=== PATIENT | male | born 1935 | race Hispanic/Latino ===

== ENCOUNTER 2019-09-18 13:25 | Outpatient (CLI) | payer OTHER, SELFPAY ==
--- NOTE | 2019-09-18 13:48 | ECHO_ITS ---
Patient Info Name: Aron Rose Age: 84 years : 1935 Gender: Male Ht: 70 in Wt: 210 lbs BSA: 2.19 m2 HR: 89 bpm BP: 148 / 71 mmHg Heart Rhythm: Atrial Fibrillation Technical Quality: Fair Exam Date: 09/18/2019 1:57 PM Exam Location: [facility] Patient Status: Outpatient Admit Date: 09/18/2019 Staff Ordering Physician: Agus Celaya DO Software Quality Assurance Engineer: Hortencia Giron RDCS Attending Provider: Agus Celaya DO Referring Physician: Yomi ANN; Exam Type: CA echo doppler color flow Study Info Indications I48.91 - UNSPECIFIED ATRIAL FIBRILLATION Complete two-dimensional, color flow and Doppler transthoracic echocardiogram is performed. Summary 1. Left ventricular chamber dimension is normal. 2. Left ventricular systolic function is normal, estimated at 60-65%. 3. The left ventricular diastolic function is abnormal. 4. E/e' 12 is mildly elevated. 5. Patient is in atrial fibrillation. 6. Left atrial chamber dimension is mildly enlarged. 7. The aortic valve is not well visualized. 8. There is moderate aortic valve sclerosis. 9. There is trace aortic valve regurgitation. 10. The mitral valve has moderately calcified annulus. 11. There is mild to moderate mitral valve regurgitation. 12. There is mild tricuspid valve regurgitation. 13. Mild pulmonary hypertension, estimated pulmonary arterial systolic pressure is 41 mmHg. Left Ventricle E/e' 12 is mildly elevated. Patient is in atrial fibrillation. Left ventricular chamber dimension is normal. Left ventricular systolic function is normal, estimated at 60-65%. The left ventricular diastolic function is abnormal. Right Ventricle Right ventricular chamber dimension is normal. Right ventricular systolic function is normal. Left Atria Left atrial chamber dimension is mildly enlarged. Right Atria Right atrial chamber dimension is normal. Aortic Valve Cannot determine number of aortic valve leaflets. The aortic valve is not well visualized. There is moderate aortic valve sclerosis. There is no aortic valve stenosis. There is trace aortic valve regurgitation. Pulmonic Valve There is no pulmonic regurgitation. Mitral Valve The mitral valve has moderately calcified annulus. There is no mitral valve stenosis. There is mild to moderate mitral valve regurgitation. Tricuspid Valve There is mild tricuspid valve regurgitation. Mild pulmonary hypertension, estimated pulmonary arterial systolic pressure is 41 mmHg. Pericardium/Pleural There is no pericardial effusion. Inferior Vena Cava Normal inferior vena cava with >50% collapse upon inspiration consistent with normal right atrial pressure, 5 mmHg. Aorta The aortic root size at the sinus of Valsalva is normal. Left Ventricular Outflow Tract Name Value Normal LVOT 2D LVOT Diameter 2.1 cm LVOT Doppler LVOT Peak Velocity 111 cm/s LVOT Peak Gradient 2 mmHg LVOT Mean Gradient 1 mmHg LVOT VTI 22 cm LVOT VTI/AV VTI Ratio 0.
== END 2019-09-18 13:26 | disposition home or self-care (01) ==
PROVIDERS: PCP Family Medicine; Visit Provider Internal Medicine Cardiovascular Disease
DX: I48.91 Unspecified atrial fibrillation (principal); I51.7 Cardiomegaly; I08.3 Combined rheumatic disorders of mitral, aortic and tricuspid valves; I27.20 Pulmonary hypertension, unspecified
CPT/HCPCS: 93306

== ENCOUNTER 2021-12-05 13:56 | Inpatient (IN) | payer MEDICARE, OTHER, SELFPAY ==
[2021-12-05] VITALS (33 sets, daily range): BP systolic 132–180; BP diastolic 76–102; PULSE 108–150; RESP 18–39; TEMP 35.9–36.9; O2SAT 93–100
--- NOTE | ~2021-12-05 | US_ITS ---
EXAMINATION: US arterial ankle brachial ind DATE: 12/07/2021 13:01 INDICATION: Bilateral diabetic foot ulcers. Weak pulses. TECHNIQUE: Segmental pressures and plethysmographic and Doppler waveforms of the brachial and lower e xtremity arteries were obtained. COMPARISON: None. FINDINGS: Right and left brachial artery pressures of 141 mm Hg and 143 mm Hg, respectively, are concordant (no rmal difference <= 30 mmHg). The right ankle-brachial index (BERNARDA) is 0.78 (normal >= 0.9-1.0). The right great toe-brachial index (TBI) is 0.64 (normal >= 0.65). The right ankle brachial index is based solely upon the pressure in t he right dorsalis pedis artery with no dopplerable pulse identified in the right posterior tibial art kush. Poor [id number] of the waveform at the right dorsalis pedis artery precluding assessment fo r phasicity and length of systolic upstrokes. The left BERNARDA is 1.76 based only upon the pressure in the left posterior tibial artery with no doppler able pulse at the left dorsalis pedis artery. The left TBI is 0.99. Arterial Doppler waveforms are bi phasic with brisk systolic upstrokes at the left posterior tibial artery. IMPRESSION: 1. 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 2. Arterial occlusive disease in the left lower limb with no dopplerable pulse at the left dorsalis p concetta artery but normal left BERNARDA and TBI. Reviewed, dictated and finalized at location A. IMPRESSION: 1. 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 2. Arterial occlusive disease in the left lower limb with no dopplerable pulse at the left dorsalis pedis artery but normal left BERNARDA and TBI.
--- NOTE | ~2021-12-05 | XR_ITS ---
EXAMINATION: XR chest 2V Exam Date/Time: 12/05/2021 14:10 CDT CLINICAL HISTORY: TRANSIENT ALTERATION OF AWARENESS,HICCUPS X3DAYS,FALL TODAY Comparison: 06/26/2016. RESULT: Lines, tubes, and devices: None. Lungs and pleura: Subsegmental basilar subsegmental opacities, more pronounced on the left, with lef t costophrenic angle blunting. Cardiomediastinal silhouette: Stable cardiomediastinal silhouette. Other: No acute osseous or upper abdominal finding. IMPRESSION: Bibasilar atelectasis/consolidation, worse on the left. Likely small left pleural effusion. Reviewed, dictated and finalized at location K. IMPRESSION: Bibasilar atelectasis/consolidation, worse on the left. Likely small left pleur al effusion.
--- NOTE | ~2021-12-05 | XR_ITS ---
EXAMINATION: XR fl Dobhoff insert/rad w img DATE: 12/09/2021 14:24 INDICATION: Failed modified swallow study requiring enteric feeding tube placement TECHNIQUE: A Dobbhoff type feeding tube was advanced into the duodenum utilizing intermittent fluoroscopy. 10 mL Omnipaque 350 contrast was injected through the tube into the stomach during the procedure to deline ate the location of the gastric outlet. Final image demonstrates the feeding tube in position with th e weighted tip at the expected location of the ligament of Treitz. The tube was flushed with [address] erile saline and fixed to the nares with adhesive tape.. Fluoroscopic images were recorded. The amoun t of fluoroscopy time used during this procedure was 3.8 minutes. There were no immediate complicatio ns. FINDINGS/IMPRESSION: Successful fluoroscopy-guided Dobbhoff feeding tube placement with distal tip in the fourth portion o f the duodenum. Reviewed, dictated and finalized at location A.
--- NOTE | ~2021-12-05 | CT_ITS ---
EXAMINATION: CT abdomen pelvis wo con DATE: 12/05/2021 16:49 INDICATION: Hematuria. TECHNIQUE: Computed tomography (CT) of the abdomen and pelvis was performed without intravenous contr ast. Automated exposure control and iterative reconstruction technique were employed. The dose-length product was 1601.79 mGy-cm. COMPARISON: 12/02/2014. FINDINGS: Lower thorax: Mild motion artifact. Senescent changes. Bibasilar atelectasis. Right lower lobe calcif ied granuloma. Atherosclerotic calcifications in the aorta. Mitral and aortic valve calcifications. H eavy coronary artery calcifications. Liver: Right lobe cyst is mostly obscured in this exam. Biliary/Gallbladder: Gallbladder is normal. No bile duct dilation. Pancreas: No mass or duct dilation. Spleen: Normal. Adrenals:No mass. Kidneys: Bilateral perinephric stranding. Cortical thinning and scarring greater on the right. Multip le bilateral simple cysts. MR documented right inferior pole hemorrhagic cyst. No hydronephrosis or n ephrolithiasis. GI tract: No small or large bowel dilation. Normal appendix. Mesentery/Peritoneum: No ascites, mass, or free air. Retroperitoneum: No mass. Abdominal arterial atherosclerosis. Pelvis: Partially visualized uncomplicated appearing right hip arthroplasty which creates artifact th at obscures some pelvic organs detail. Mild bladder wall thickening likely on the basis of outlet obs truction. Small anterior ureterocele. Prostatomegaly. Soft Tissues: Moderate bilateral fat-containing inguinal hernias. Small fat-containing umbilical lalo ia. Bones: No acute osseous finding. IMPRESSION: No acute abdominopelvic process. Chronic and incidental findings detailed above. Reviewed, dictated and finalized at location K. IMPRESSION: No acute abdominopelvic process. Chronic and incidental findings detailed above .
--- NOTE | ~2021-12-05 | XR_ITS ---
MODIFIED ESOPHAGRAM HISTORY: Choking episode TECHNIQUE: Modified barium esophagram was performed on 12/08/2021. I administered fluoroscopy and perf ormed the exam with speech pathologist. Patient was seated for lateral fluoroscopic imaging for lea stion of thin liquids, pudding, solids and quantified amounts, followed by thin liquids in uncontroll ed amounts. This was recorded on tape. A single fluoroscopic spot image was also recorded. The DAP fo r this procedure was 2.12 Gycm2. The amount of fluoroscopy time used during this procedure was 1.4 mi nutes. FINDINGS: Oral stage: Adequate function. Pharyngeal stage: There is reduced laryngeal elevation, laryngeal reduction, tongue base retraction a nd pharyngeal squeeze. There is vallecular residue with laryngeal penetration and aspiration. Cervical/esophageal stage: Adequate function. IMPRESSION: Pharyngeal dysphagia with laryngeal penetration and aspiration with thin liquids and pudd ing consistencies. Please correlate with speech pathologist findings and specific feeding recommenda tions. Reviewed, dictated and finalized at location A. IMPRESSION: Pharyngeal dysphagia with laryngeal penetration and aspiration with thin liquids and pudding consistencies. Please correlate with speech patholog ist findings and specific feeding recommendations.
--- NOTE | ~2021-12-05 | XR_ITS ---
EXAM: XR foot RT 2V HISTORY: Diabetic wound COMPARISON: None available FINDINGS: Decreased mineralization. Degenerative change at the tibiotalar joint and midfoot joints a nd first MTP. No fracture or dislocation. Achilles and plantar enthesopathy. High arch. No definite s oft tissue defect, erosion, or periosteal change. Vascular calcifications. IMPRESSION: No radiographic evidence of osteomyelitis in the right foot. Reviewed, dictated and finalized at location K.
--- NOTE | ~2021-12-05 | CT_ITS ---
EXAMINATION: CT brain wo con DATE: 12/05/2021 14:27 INDICATION: Altered mental status. Transient alteration of awareness. TECHNIQUE: Computed tomography (CT) of the head was performed without intravenous contrast. The mA wa s adjusted according to patient size. Iterative reconstruction technique was employed. Exam dose: 90 8.00 mGy-cm total exam DLP. COMPARISON: None FINDINGS: Examination is limited due to motion artifact. Technologist notes that this was the best ex amination could be obtained. Bilateral vertebral artery, basilar artery and prominent bilateral carotids and supraclinoid internal carotid artery calcifications. There is nonspecific diminished attenuation cerebral white matter, likely due to chronic small vessel ischemic changes. Chronic left basal ganglia and periventricular lacunar infarcts. There is an old infarct in the media l right occipital area. No intracranial mass lesion or hemorrhage, midline shift or mass effect. No subdural or epidural hematoma. The orbital contents are unremarkable. No fracture or bone destruction of the cranial vault. The mastoid air cells and paranasal sinuses are normally developed and aerated. IMPRESSION: Old right occipital and left basal ganglia and periventricular infarcts Cerebral atherosclerosis and chronic small vessel ischemic changes of cerebral white matter Reviewed, dictated and finalized at Location A. Reviewed, dictated and finalized at location A. IMPRESSION: Old right occipital and left basal ganglia and periventricular inf arcts Cerebral atherosclerosis and chronic small vessel ischemic changes of cerebral white matter
--- NOTE | ~2021-12-05 | XR_ITS ---
EXAM: XR foot LT 2V HISTORY: Diabetic foot wound COMPARISON: None available FINDINGS: Mild hallux valgus. Mild degenerative change at the first MTP. Degenerative change also pr esent at the tibiotalar joint and in the midfoot. Diffuse osteopenia. Achilles and plantar enthesopat hy. Possible soft tissue defects in the soft tissues of the ball of the foot, overlying the metatarsa l heads. IMPRESSION: Possible soft tissue defects/ulcers at the ball of foot, correlate clinically. No radiographic eviden ce of osteomyelitis. Reviewed, dictated and finalized at location K. IMPRESSION: Possible soft tissue defects/ulcers at the ball of foot, correlate clinically. No radiographic evidence of osteomyelitis.
--- NOTE | 2021-12-05 13:58 | ED.AMS ---
HPI - Altered Mental Status General Chief Complaint: Altered Mental Status Stated Complaint: Altered mental, increased heart rate Time Seen by Provider: 12/05/21 13:56 History of Present Illness HPI narrative: pt found altered mental status, urinated on himself no sz activity per family, pt says feels weak, hiccups for 3 days no other cp/sob/layton/neck or back pain/abd pain/f/uri/isolated neuro cahgnes, med changes but h/o uti's and incontinent of urine today Related Data Allergies Allergy/AdvReac Type Severity Reaction Status Date / Time Itjccje-[id number]-RwH Reductase Allergy Unknown unknown Verified 12/05/21 14:06 Inhibitor [Knntsag-Hjm-Oqf Reductase Inhibitor] Review of Systems Review of Systems: CONSTITUTIONAL: Denies fever, chills, or sweats. EYES: Denies visual changes, redness, or discharge. ENT: Denies rhinorrhea, congestion, sore throat, or otalgia. CARDIOVASCULAR: Denies chest pain, palpitations, or edema. RESPIRATORY: Denies cough or dyspnea. GASTROINTESTINAL: Denies abdominal pain, nausea, vomiting, or diarrhea. GENITOURINARY: Denies dysuria or hematuria. SKIN: Denies rash or itching. MUSCULOSKELETAL: Denies back pain, joint pain, or myalgia. NEUROLOGIC: Denies headache, numbness, has weakness PSYCHIATRIC: Denies anxiety or depression. PMFSH Past Medical History Medical History Abnormality of gait BPH associated with nocturia Cognitive impairment Diabetes mellitus with neuropathy History of CVA (cerebrovascular accident) Memory deficit due to and not concurrent with cerebrovascular accident (CVA) Type 2 diabetes mellitus with hyperglycemia Family History Family History Father Diabetes mellitus Mother Cerebrovascular accident Social History Social History (Updated 04/23/21 @ 13:04 by Julia Castellano) Social History: Smoking status: Never smoker Second hand tobacco smoke exposure: No Alcohol intake: never Substance use: never Substance use type: does not use Gender identity (if verbalized by the patient): Male Sexual Orientation (if Verbalized by the Patient): Straight or Heterosexual Exam Narrative: APPEARANCE: Well appearing, no pain in distress, well-nourished. Head normocephalic atraumtaic. EYES: PERRLA/EOMI, conjunctivae very clear. NOSE: Normal no drainage EARS:TMS clear Tawanda Bailey, with good light reflex. THROAT: Pharynx clear, no exudate. no bites to tongue NECK: Supple. No adenopathy, no masses. RESPIRATORY: Airway patent, repsirations nonlabored. Clear to auscultation bilaterally, no rales, rhonchi, wheezing. CARDIOVASCULAR: tachy rate and rhythm without murmurs rubs or gallops. ABDOMINAL: Soft, nontender, nondistended, no hepatosplenomegally has wet self foul urine smell MUSCULOSKELETAl: Moves all extremities. Strenght/ROM intact, No edema, No calf tenderness. NEURO: Alert. Cranial nerves II through XII intact. Good gait. Good coordination globally weak no focal deficits SKIN:: Warm, dry. Normal Color PSYCHIATRIC: Normal affect/mood, normal interaction with parents. Course Course Emergency Course: updated pt and family at 1525 hr down wiht diltiazem but then coming back up but will add fluid bolus and dilt drip and get admitted betsy helped hiccups calling hospitalist at 1549 Vital Signs Vital signs: Vital Signs Temperature 35.9 C L 12/05/21 13:54 Pulse Rate 150 H 12/05/21 13:54 Respiratory Rate 18 12/05/21 13:54 Blood Pressure 150/96 H 12/05/21 13:54 Pulse Oximetry 98 12/05/21 13:54 Temperature 35.9 C L 12/05/21 13:54 Pulse Rate 111 H 12/05/21 15:19 Respiratory Rate 29 H 12/05/21 15:19 Blood Pressure 154/88 H 12/05/21 15:19 Pulse Oximetry 95 12/05/21 14:47 MDM - Altered Mental Status Differential Diagnosis Differential diagnosis: Likely altered mental status, sepsis and other (sz, electrolytes stroke) Medical Recor
--- NOTE | 2021-12-05 14:02 | ECG_ITS ---
Measurements Intervals Burr Rate: 146 P: IL: 0 QRS: 95 QRSD: 90 T: 38 QT: 272 QTc: 425 Interpretive Statements ATRIAL FIBRILLATION WITH RAPID VENTRICULAR RESPONSE DELAYED PRECORDIAL R/S TRANSITION BASELINE ARTIFACT- I, II, III, AVR, AVL, AVF, V6 ABNORMAL ECG Electronically Signed On 12-05-2021 15:12:19 CDT by Agus Celaya D.O.
[2021-12-05 14:49] LABS: Basophils Absolute Auto 0.1 K/mm3 (0.0-0.1); Basophils Percent Auto 0.3 % (0.2-1.2); Hemoglobin 14.8 g/dL (14.0-18.0); Immature Granulocyte Absolute 0.22 K/mm3 (0.00-0.031); Lymphocytes Absolute Auto 0.73 K/mm3 (0.9-3.2); Lymphocytes Percent Auto 3.2 % (18.3-44.2); Mean Corpuscular HGB Conc 32.2 g/dl (32-36); Mean Corpuscular Volume 90.2 fl (80-100); Mean Platelet Volume 10.6 fl (7.4-10.4); Monocytes Absolute Auto 1.7 K/mm3 (0.1-0.6); Monocytes Percent Auto 7.2 % (2.6-8.5); Neutrophils Absolute Auto 20.4 K/mm3 (1.3-6.7); Neutrophils Percent Auto 88.3 % (45.5-73.1); Platelet Count Result 271 k/mm3 (150-375); Red Cell Distribution Width 13.2 % (11.5-14.5); White Blood Count 23.1 K/mm3 (4.5-10.0)
[2021-12-05] MEDS: SODIUM CHLORIDE 0.9% IV 1,000 ML 150 ML IV CONT (14:51)
[2021-12-05] MEDS: METOCLOPRAMIDE HCL INJ 10 MG/2 ML VIAL IV PUSH (14:51)
[2021-12-05] MEDS: dilTIAZem HCl INJ 25 MG/5 ML VIAL 20 MG IV PUSH (14:51)
[2021-12-05 14:59] LABS: Lactic Acid Reflex 2.3 mmol/L (0.7-2.0)
[2021-12-05 15:00] LABS: Magnesium 1.8 mg/dL (1.6-2.3)
[2021-12-05 15:04] LABS: Alanine Aminotransferase 17 U/L (6-50); Albumin Level 4.3 g/dL (3.5-5.1); Alkaline Phosphatase 132 U/L (38-126); Anion Gap 12 mmol/L (8-16); Aspartate Amino Transferase 22 U/L (17-59); Blood Urea Nitrogen 18 mg/dL (9-20); Carbon Dioxide 19 mmol/L (22-30); Chloride 97 mmol/L (98-107); Estimated Glomerular Filt Rate > 60; Glucose 336 mg/dL (65-110); Potassium 4.9 mmol/L (3.4-5.0); Sodium 128 mmol/L (137-145)
[2021-12-05 15:05] LABS: INR 1.2; Partial Thromboplastin Time 31.2 SECONDS (22.3-36.8); Prothrombin Time 15.1 Seconds (11.1-14.7)
[2021-12-05 15:10] LABS: Burr Cells 1+ (NORMAL); Platelet Estimate Adequate (Adequate)
[2021-12-05 15:41] LABS: CRP 32.4 mg/dL (<1.0)
[2021-12-05 16:08] LABS: Add Urine Microscopic? YES; Appearance Urine Slightly Cloudy (Clear); Bilirubin Urine 1+ (Negative); Blood Urine 2+ (Negative); Color Urine Yellow (Yellow); Glucose Urine UA 2+ mg/dL (Negative); Ketones Urine 4+ mg/dL (Negative); Leukocyte Esterase Ur Negative LEU/UL (Negative); Nitrate Urine Negative (Negative); Protein Urine 2+ mg/dL (Negative); Urobilinogen Urine 0.2 mg/dL (<2.0); pH Urine 5.5 (5.0-9.0)
[2021-12-05] MEDS: dilTIAZem 100 MG/100 ML 100 MG/100 ML BAG IV CONT (16:08)
[2021-12-05 16:14] LABS: Influenza A QL RT-PCR Negative (Negative); Influenza B QL RT-PCR Negative (Negative); SARS-CoV-2 RNA PCR Negative
[2021-12-05 16:18] LABS: Mucus Urine Rare /lpf; Squamous Epithelial Cell Urine Occasional /hpf (Few)
[2021-12-05 16:58] LABS: Alveolar/Arterial O2 Gradient 35.3 mmHg; Base Excess ABG -5.5 mEq/l (+/-2.0); Carboxyhemoglobin 0.7 % THb (0-2.0); Fractional Inspired Oxygen 21 %; HCO3 ABG 17.7 mEq/l (22.0-26.0); Methemoglobin ABG 0.4 %THb (0-1.5); Oxygen Content ABG 19.2 %vol (16.0-22.0); Oxygen Saturation ABG 96.1 % (95.0-100.0); Oxyhemoglobin 94.9 % THb (90.0-100.0); PCO2 ABG 28.6 mmHg (35.0-45.0); PO2 ABG 80.2 mmHg (80.0-100.0); PO2 FiO2 Ratio Arterial Blood 3.82 %; Total Hemoglobin 14.4 g/dL (12.0-18.0); pH ABG 7.409 (7.350-7.450)
[2021-12-05 16:59] LABS: Device ROOM AIR; Modified Allen's Test Pass; Site Drawn RIGHT BRACHIAL
[2021-12-05 17:45] LABS: Reflex Lactic Acid Yes or No Add Lactic
--- NOTE | 2021-12-05 18:30 | PM.IMHP ---
H&P: HPI History of Present Illness Date/Time: 12/05/21 18:30 Chief Complaint: Found on the floor, confused. Narrative: This is a pleasant 86-year-old male with history of stroke, cognitive impairment, insulin-dependent type 2 diabetes mellitus, paroxysmal atrial fibrillation on anticoagulation, hypertension, benign prostatic hyperplasia, and overactive bladder who presented to the emergency department via EMS from home for evaluation after his found him on the floor in a confused state. He reports not feeling well the past 3 days though he has difficulties giving me specifics aside from the fact that his appetite has been poor due to nausea and he has had hiccups. According to the patient, he has not really had anything to eat or drink for 3 days and he has become increasingly more weak. Not long prior to arrival he fell down onto his bottom while walking in the bedroom as he was feeling very weak. He denies head trauma, loss of consciousness, and injuries from the fall though he and his are unable to get him up and emergency services were contacted. He has been tachycardic (atrial fibrillation/rapid ventricular response), tachypneic, and mildly hypertensive since arrival. Initial workup was significant for a WBC of 23.1, CRP 32.4, lactic acid 2.3, glucose 336, sodium 128, carbon dioxide 19, and beta hydroxybutyrate 2.40. ABG with a pH of 7.409, pCO2 28.6, bicarb 17.7. UA was positive for 2+ protein, 2+ glucose, 4+ ketones, 4 to 6 WBC. Chest x-ray showed bibasilar atelectasis/consolidation and a CT of the abdomen and pelvis showed no acute processes. He was given 3 L of normal saline and was started on a Cardizem drip. He also received 1 g of ceftriaxone for possible urinary tract infection, and he was admitted to the IMU. It was felt that his ketones were more likely due to profound dehydration and not DKA with a normal pH and anion gap. At the time my evaluation he feels a bit better after receiving IV fluids. Hiccups initially improved after receiving metoclopramide but they are starting to return. He does not believe that he has had a fever however he does endorse chills. Aside from that he has no complaints and specifically denies headache, sinus congestion, sore throat, ear pain, cough, shortness of breath, chest pain, pleuritic pain, palpitations, vomiting, diarrhea, and dysuria. On physical exam he was noted to have some wounds on his feet at the site of known calluses. He was unaware that the callus on the plantar aspect of the left foot had a small opening and was draining. He has no pain there but is has limited feeling in his feet due to neuropathy. He denies sick contacts. No dysphagia or concerns for aspiration. Review of Systems Review of Systems: 12 systems were reviewed. Patient is unable to tell me how his glucose has been running at home and I am not certain he checks it that often. No blurry vision, polydipsia, or polyuria. Except as documented, all other systems were reviewed and are negative. [facility] Past Medical History Medical History (Updated 12/05/21 @ 22:28 by Aspen Dempsey PA-C) BPH associated with nocturia Cerebrovascular accident Resultant memory and cognitive deficits. Cognitive impairment Diabetic peripheral neuropathy Dyslipidemia Hypertension Insulin dependent type 2 diabetes mellitus Kidney stones Overactive bladder Paroxysmal atrial fibrillation Surgical History Surgical History (Updated 12/05/21 @ 22:17 by Aspen Dempsey PA-C) History of arthroscopic knee surgery History of foot surgery History of total right hip arthroplasty Family History Family History Father Diabetes mellitus Mother Cerebrovascular accident Social History Social History (Updated 12/05/21 @ 22:18 by Aspen Dempsey PA-C) Social History: Surrogate decision maker: Lyssa Rose (spouse) or Dangelo Menchaca (daughter). Code status: Full code. Smok
[2021-12-05 18:35] LABS: Lactic Acid 1.6 mmol/L (0.7-2.0)
--- NOTE | 2021-12-05 19:15 | ADMGEN ---
This patient, Aron Rose, was admitted to IMU Room 212-01 at 1840 on 12/05/21. Patient/family oriented to hospital policies and general routines including ID bracelet, bed and alarms, visiting hours, pain management, procedures, bathroom and other care routines, personal items, smoking policy, room service/diet, and visiting hours. Information on how to activate the Rapid Response Team has been discussed. Patient/Family are encouraged to report perceived risks to care and to ask questions if they do not understand what they are told or what they should do.
[2021-12-05 20:21] LABS: Anion Gap 11 mmol/L (8-16); Blood Urea Nitrogen 15 mg/dL (9-20); Carbon Dioxide 17 mmol/L (22-30); Chloride 102 mmol/L (98-107); Estimated Glomerular Filt Rate > 60; Glucose 298 mg/dL (65-110); Potassium 4.2 mmol/L (3.4-5.0); Sodium 130 mmol/L (137-145)
[2021-12-05 20:25] LABS: Beta-Hydroxybutyrate/Acetoacetate 2.66 mmol/L (0.02-0.27)
[2021-12-05] MEDS: INSULIN ASPART (*BKC) 100 UNITS/ML 6 UNITS SUB-Q (20:53)
--- NOTE | 2021-12-05 21:11 | ADMIMU ---
This patient, Aron Rose, was admitted to IMU status, and placed in IMU Room 212-01. Patient/family oriented to hospital policies and general routines including ID bracelet, bed and alarms, visiting hours, pain management, procedures, bathroom and other care routines, personal items, smoking policy, room service/diet, and visiting hours. Information on how to activate the Rapid Response Team has been discussed. Patient/Family are encouraged to report perceived risks to care and to ask questions if they do not understand what they are told or what they should do.
--- NOTE | 2021-12-05 21:35 | PC.NURSE ---
Attempted to reach for home med list and admit information; message left to call [phone]. Called number associated with daughter , however, the line states the number has disconnected.
[2021-12-05] MEDS: LACTATED RINGERS 500 ML IV CONT (23:02)
[2021-12-05] MEDS: APIXABAN 5 MG TABLET PO (23:33)
[2021-12-05] MEDS: METOPROLOL TARTRATE 50 MG TAB PO (23:33)
[2021-12-06] VITALS (10 sets, daily range): BP systolic 108–135; BP diastolic 65–76; PULSE 79–118; RESP 16–26; TEMP 36.6–37.1; O2SAT 95–98
[2021-12-06 00:09] LABS: Glucose Point of Care 361 mg/dl (65-105)
[2021-12-06 00:31] LABS: Anion Gap 7 mmol/L (8-16); Blood Urea Nitrogen 17 mg/dL (9-20); Calcium 7.7 mg/dL (8.4-10.2); Carbon Dioxide 17 mmol/L (22-30); Chloride 101 mmol/L (98-107); Estimated Glomerular Filt Rate > 60; Glucose 343 mg/dL (65-110); Potassium 4.1 mmol/L (3.4-5.0); Sodium 125 mmol/L (137-145)
[2021-12-06 00:40] LABS: Beta-Hydroxybutyrate/Acetoacetate 1.17 mmol/L (0.02-0.27)
[2021-12-06] MEDS: LACTATED RINGERS 1,000 ML 100 ML IV CONT ×3 (00:53→18:44)
[2021-12-06] MEDS: INSULIN ASPART (*BKC) 100 UNITS/ML 15 UNITS SUB-Q (01:04)
[2021-12-06 05:50] LABS: Basophils Absolute Auto 0.1 K/mm3 (0.0-0.1); Basophils Percent Auto 0.2 % (0.2-1.2); Eosinophils Absolute Auto 0.1 K/mm3 (0-0.3); Eosinophils Percent Auto 0.5 % (0-4.4); Hematocrit 36.7 % (42.0-52.0); Hemoglobin 11.9 g/dL (14.0-18.0); Immature Granulocyte Absolute 0.19 K/mm3 (0.00-0.031); Immature Granulocyte Percent A 0.9 % (0-0.5); Lymphocytes Percent Auto 5.2 % (18.3-44.2); Mean Corpuscular HGB Conc 32.4 g/dl (32-36); Mean Corpuscular Hemoglobin 29.1 pg (26-34); Mean Corpuscular Volume 89.7 fl (80-100); Mean Platelet Volume 10.4 fl (7.4-10.4); Monocytes Absolute Auto 1.8 K/mm3 (0.1-0.6); Monocytes Percent Auto 8.2 % (2.6-8.5); Neutrophils Absolute Auto 18.1 K/mm3 (1.3-6.7); Platelet Count Result 260 k/mm3 (150-375); Red Blood Count 4.09 M/mm3 (4.6-6.20); Red Cell Distribution Width 13.4 % (11.5-14.5); White Blood Count 21.3 K/mm3 (4.5-10.0)
[2021-12-06 05:53] LABS: Alanine Aminotransferase 14 U/L (6-50); Albumin Level 3.1 g/dL (3.5-5.1); Alkaline Phosphatase 88 U/L (38-126); Anion Gap 6 mmol/L (8-16); Aspartate Amino Transferase 23 U/L (17-59); Bilirubin,Total 1.2 mg/dL (0.2-1.3); Blood Urea Nitrogen 17 mg/dL (9-20); Calcium 7.7 mg/dL (8.4-10.2); Carbon Dioxide 17 mmol/L (22-30); Chloride 104 mmol/L (98-107); Estimated Glomerular Filt Rate > 60; Glucose 184 mg/dL (65-110); Magnesium 1.9 mg/dL (1.6-2.3); Potassium 4.2 mmol/L (3.4-5.0); Sodium 127 mmol/L (137-145)
[2021-12-06 07:27] LABS: Glucose Point of Care 176 mg/dl (65-105)
[2021-12-06] MEDS: METOPROLOL TARTRATE 50 MG TAB PO ×2 (09:33→20:41)
[2021-12-06] MEDS: TAMSULOSIN HCL 0.4 MG CAPSULE PO (09:37)
[2021-12-06] MEDS: APIXABAN 5 MG TABLET PO ×2 (09:37→20:31)
[2021-12-06] MEDS: FINASTERIDE 5 MG TABLET PO (09:37)
[2021-12-06 12:13] LABS: Glucose Point of Care 355 mg/dl (65-105)
[2021-12-06] MEDS: INSULIN ASPART (*BKC) 100 UNITS/ML SUB-Q ×2 (13:26→17:23)
[2021-12-06 13:27] LABS: Glucose Point of Care 336 mg/dl (65-105)
--- NOTE | 2021-12-06 17:20 | PM.IMPN ---
Progress Note: A&P Assessment and Plan (1) Sepsis: Qualifiers: Sepsis acute organ dysfunction status: without acute organ dysfunction Sepsis type: sepsis due to unspecified organism Qualified Code(s): A41.9 - Sepsis, unspecified organism Code(s): A41.9 - Sepsis, unspecified organism Status: Acute Assessment and Plan: Supported by tachycardia, tachypnea, leukocytosis, and elevated lactic acid in the setting infection. SOFA score is 3. Lactic acid level has normalized with IV fluid rehydration. Blood, urine, and wound cultures pending. 12/06: Follow-up cultures, patient's vital signs have normalized significantly (2) Diabetic foot ulcers: Code(s): E11.621 - Type 2 diabetes mellitus with foot ulcer; L97.509 - Non-pressure chronic ulcer of other part of unspecified foot with unspecified severity Status: Acute Assessment and Plan: Ulcer on the left plantar foot has an open area with scant purulent drainage. Ulcer over the right 2nd PIP joint with erythema and edema extending to the distal leg. Continue imipenem and vancomycin, pending wound culture. Plain films ordered to assess for possible osteomyelitis. 12/06: Day 2 of broad-spectrum antibiotics with vancomycin and imipenem, follow-up wound culture--showing mixed hailey so far, consult surgery/Podiatry for possible bedside debridement and the diagnosis of possible osteomyelitis. (3) Cellulitis of leg: Code(s): L03.119 - Cellulitis of unspecified part of limb Status: Acute Assessment and Plan: Currently on imipenem and vancomycin as detailed above. (4) Atrial fibrillation with rapid ventricular response: Code(s): I48.91 - Unspecified atrial fibrillation Status: Acute Assessment and Plan: Rate is looking better on the Cardizem drip. Continue metoprolol and wean Cardizem drip as tolerated. Continue apixaban for stroke prophylaxis. 12/06: Cardizem drip weaned off, patient rate controlled (5) Abnormal chest x-ray: Code(s): R93.89 - Abnormal findings on diagnostic imaging of other specified body structures Status: Acute Assessment and Plan: Bibasilar atelectasis/consolidation noted on chest x-ray. Atelectasis noted at the bases and CT of the abdomen and pelvis. Patient negative for influenza A and B as well as COVID-19. Pneumonia seems less likely at this time. 12/06: Unsure of etiology of abnormality on chest x-ray, continue antibiotics for now, could be early pneumonia versus effusions from heart failure? (6) Dehydration: Code(s): E86.0 - Dehydration Status: Acute Assessment and Plan: He was given a 3 L bolus of fluids in the emergency department. Continue cautious IV fluid rehydration overnight. Monitor volume status closely to avoid over-hydration. 12/06: Appears to be euvolemic at this time (7) Ketosis: Code(s): E88.89 - Other specified metabolic disorders Status: Acute Assessment and Plan: Likely due to little or no oral intake over the past few days and profound dehydration. May be some component of early DKA with a normal pH and anion gap at this time. Will give insulin at this time and continue IV fluid rehydration. If no improvement in BMP/BHOB on repeat labs at midnight, he will need an insulin drip. 12/06: Ketones down to 1 (8) Insulin dependent type 2 diabetes mellitus: Code(s): E11.9 - Type 2 diabetes mellitus without complications; Z79.4 - roasterman (current) use of insulin Status: Acute Assessment and Plan: Continue basal insulin. Initiate sliding scale insulin, Accu-Cheks, and hypoglycemic protocol. Check hemoglobin A1c. 12/06: A1c noted to be greater than 10, blood sugars appear to fluctuate significantly, would likely benefit from mealtime coverage as opposed to increasing the long-acting dose Subjective Date/time seen: 12/06/21 17:20 Patient resting comfortably without an
[2021-12-06 17:28] LABS: Glucose Point of Care 374 mg/dl (65-105)
[2021-12-06 21:15] LABS: Glucose Point of Care 297 mg/dl (65-105)
[2021-12-07] VITALS (17 sets, daily range): BP systolic 124–146; BP diastolic 67–84; PULSE 94–119; RESP 22–32; TEMP 36.4–37.2; O2SAT 96–99
[2021-12-07] MEDS: LACTATED RINGERS 1,000 ML 100 ML IV CONT (07:41)
[2021-12-07 08:09] LABS: Glucose Point of Care 283 mg/dl (65-105)
[2021-12-07 08:31] LABS: Estimated Glomerular Filt Rate > 60
[2021-12-07 09:06] LABS: Vancomycin Trough 11.9 ug/mL (10.0-20.0)
[2021-12-07] MEDS: METOPROLOL TARTRATE 50 MG TAB PO (09:27)
[2021-12-07] MEDS: FINASTERIDE 5 MG TABLET PO (09:27)
[2021-12-07] MEDS: APIXABAN 5 MG TABLET PO (09:27)
[2021-12-07] MEDS: TAMSULOSIN HCL 0.4 MG CAPSULE PO (09:27)
[2021-12-07] MEDS: SILVERGEL (ELTA) 45 ML 1 APPLIC TOPICAL (09:28)
[2021-12-07] MEDS: INSULIN ASPART (*BKC) 100 UNITS/ML SUB-Q ×4 (09:29→17:51)
--- NOTE | 2021-12-07 11:19 | PM.CNGS ---
Assessment and Plan Assessment and plan (1) Diabetic foot ulcers: Code(s): E11.621 - Type 2 diabetes mellitus with foot ulcer; L97.509 - Non-pressure chronic ulcer of other part of unspecified foot with unspecified severity Status: Acute Assessment and Plan: The patient has a right 2nd toe diabetic foot ulcer that does probe to bone with the toe appearing pink but no significant erythema extending down the foot. No necrotic tissue or indication for debridement. He also has two areas on the right plantar foot over the 4th and 5th metatarsal head. One appears to be a callus with a darkened area in the center that has purulent drainage and the other area appears to be a dark eschar. There was very scant amount of purulent drainage but primarily this is intact and otherwise dry. There is no surrounding cellulitis. There is no evidence of osteomyelitis on plain films of bilateral feet. Will start with local wound care, with silver gel dressing changes daily. He may potentially need surgical debridement of the eschar on the left foot. Will reassess the wounds tomorrow and decide on the need for debridement. Could consider wound cultures if there is any significant purulent drainage during surgery. Thank you for allowing us to see the patient in consultation and we will continue to follow along with you. (2) Cellulitis of leg: Code(s): L03.119 - Cellulitis of unspecified part of limb Status: Acute Assessment and Plan: Right 2nd toe with mild erythema but does not appear to have significant cellulitis extending to the foot or leg. Continue IV antibiotics. See plan above. (3) Sepsis: Qualifiers: Sepsis acute organ dysfunction status: without acute organ dysfunction Sepsis type: sepsis due to unspecified organism Qualified Code(s): A41.9 - Sepsis, unspecified organism Code(s): A41.9 - Sepsis, unspecified organism Status: Acute Assessment and Plan: Sepsis criteria met on admission with tachycardia, tachypnea, and leukocytosis. Lactic acid normalized with IV fluid rehydration. Blood culture pending. Urine culture pending. Wound culture from left foot shows preliminary growth of group B streptococcus. Source still unclear. Could be skin versus urinary versus pulmonary. Continue with broad-spectrum IV antibiotics and IV fluids. See plan above for diabetic foot ulcers. Monitor labs. (4) Peripheral arterial disease: Code(s): I73.9 - Peripheral vascular disease, unspecified Status: Acute Assessment and Plan: I suspect he has peripheral arterial disease given his diminished pulses on exam. Will order BERNARDA's to further evaluate his arterial disease. (5) Atrial fibrillation with rapid ventricular response: Code(s): I48.91 - Unspecified atrial fibrillation Status: Acute Assessment and Plan: Heart rate improving since admission with fluid resuscitation. Heart rate now in the low 100's. Currently being monitored on telemetry in IMU. No longer on a cardizem drip and now on oral metoprolol. (6) Anticoagulant long-term use: Code(s): Z79.01 - jail (current) use of anticoagulants Status: Acute Assessment and Plan: Currently on Eliquis for his atrial fibrillation. Increases risks for bleeding. Will put on hold for possible surgical debridement. (7) Abnormal chest x-ray: Code(s): R93.89 - Abnormal findings on diagnostic imaging of other specified body structures Status: Acute Assessment and Plan: Chest x-ray showing bibasilar atelectasis/consolidation. Initially this was felt to not likely represent pneumonia. He is not hypoxic and has apparently been asymptomatic until this morning when he began coughing. Some concern for aspiration, swallow study ordered. Encourage IS use. Management per Hospitalist. (8) Dehydration: Code(s): E86.0 - Dehydration Status: Acute Assessment and Plan: Responding to IV fluid hydr
[2021-12-07 12:26] LABS: Glucose Point of Care 418 mg/dl (65-105)
--- NOTE | 2021-12-07 12:56 | PM.IMPN ---
Progress Note: A&P Assessment and Plan (1) Sepsis: Qualifiers: Sepsis acute organ dysfunction status: without acute organ dysfunction Sepsis type: sepsis due to unspecified organism Qualified Code(s): A41.9 - Sepsis, unspecified organism Code(s): A41.9 - Sepsis, unspecified organism Status: Acute Assessment and Plan: Supported by tachycardia, tachypnea, leukocytosis, and elevated lactic acid in the setting infection. SOFA score is 3. Lactic acid level has normalized with IV fluid rehydration. Blood, urine, and wound cultures pending. 12/06: Follow-up cultures, patient's vital signs have normalized significantly 12/07: Wound cultures growing group B strep, possible contaminant, will continue current antibiotics, await deep wound culture from surgery and follow-up blood and urine cultures (2) Diabetic foot ulcers: Code(s): E11.621 - Type 2 diabetes mellitus with foot ulcer; L97.509 - Non-pressure chronic ulcer of other part of unspecified foot with unspecified severity Status: Acute Assessment and Plan: Ulcer on the left plantar foot has an open area with scant purulent drainage. Ulcer over the right 2nd PIP joint with erythema and edema extending to the distal leg. Continue imipenem and vancomycin, pending wound culture. Plain films ordered to assess for possible osteomyelitis. 12/06: Day 2 of broad-spectrum antibiotics with vancomycin and imipenem, follow-up wound culture--showing mixed hailey so far, consult surgery/Podiatry for possible bedside debridement and the diagnosis of possible osteomyelitis. 12/07: Day 3 of vancomycin imipenem, appreciate surgical consultation, await their recommendations, concerning for possible osteomyelitis, will check CRP, ESR, defer further imaging to surgery (3) Cellulitis of leg: Code(s): L03.119 - Cellulitis of unspecified part of limb Status: Acute Assessment and Plan: Currently on imipenem and vancomycin as detailed above. (4) Atrial fibrillation with rapid ventricular response: Code(s): I48.91 - Unspecified atrial fibrillation Status: Acute Assessment and Plan: Rate is looking better on the Cardizem drip. Continue metoprolol and wean Cardizem drip as tolerated. Continue apixaban for stroke prophylaxis. 12/06: Cardizem drip weaned off, patient rate controlled 12/07: Rate controlled, continue Eliquis, metoprolol, consult cardiology for optimization, patient may end up proceeding with some sort of surgery (5) Abnormal chest x-ray: Code(s): R93.89 - Abnormal findings on diagnostic imaging of other specified body structures Status: Acute Assessment and Plan: Bibasilar atelectasis/consolidation noted on chest x-ray. Atelectasis noted at the bases and CT of the abdomen and pelvis. Patient negative for influenza A and B as well as COVID-19. Pneumonia seems less likely at this time. 12/06: Unsure of etiology of abnormality on chest x-ray, continue antibiotics for now, could be early pneumonia versus effusions from heart failure? 12/07: Continue antibiotics, consider repeat chest imaging if symptoms worsen, encourage incentive spirometry use, trial Mucinex (6) Dehydration: Code(s): E86.0 - Dehydration Status: Acute Assessment and Plan: He was given a 3 L bolus of fluids in the emergency department. Continue cautious IV fluid rehydration overnight. Monitor volume status closely to avoid over-hydration. 12/06: Appears to be euvolemic at this time (7) Ketosis: Code(s): E88.89 - Other specified metabolic disorders Status: Acute Assessment and Plan: Likely due to little or no oral intake over the past few days and profound dehydration. May be some component of early DKA with a normal pH and anion gap at this time. Will give insulin at this time and continue IV fluid rehydration. If no improvement in BMP/BHOB on repeat labs at midnight, he will ne
[2021-12-07 13:28] LABS: Basophils Absolute Auto 0.1 K/mm3 (0.0-0.1); Basophils Percent Auto 0.3 % (0.2-1.2); Eosinophils Absolute Auto 0.2 K/mm3 (0-0.3); Eosinophils Percent Auto 0.8 % (0-4.4); Hematocrit 37.2 % (42.0-52.0); Hemoglobin 11.9 g/dL (14.0-18.0); Immature Granulocyte Absolute 0.16 K/mm3 (0.00-0.031); Immature Granulocyte Percent A 0.8 % (0-0.5); Lymphocytes Absolute Auto 0.91 K/mm3 (0.9-3.2); Lymphocytes Percent Auto 4.8 % (18.3-44.2); Mean Corpuscular Hemoglobin 29.3 pg (26-34); Mean Corpuscular Volume 91.6 fl (80-100); Mean Platelet Volume 11.1 fl (7.4-10.4); Monocytes Absolute Auto 1.3 K/mm3 (0.1-0.6); Monocytes Percent Auto 6.6 % (2.6-8.5); Neutrophils Absolute Auto 16.6 K/mm3 (1.3-6.7); Neutrophils Percent Auto 86.7 % (45.5-73.1); Platelet Count Result 309 k/mm3 (150-375); Red Blood Count 4.06 M/mm3 (4.6-6.20); Red Cell Distribution Width 13.6 % (11.5-14.5); White Blood Count 19.1 K/mm3 (4.5-10.0)
[2021-12-07 13:34] LABS: Anion Gap 4 mmol/L (8-16); Blood Urea Nitrogen 19 mg/dL (9-20); Calcium 8.6 mg/dL (8.4-10.2); Carbon Dioxide 23 mmol/L (22-30); Chloride 99 mmol/L (98-107); Estimated CRCL calculation 68 ml/min; Estimated Glomerular Filt Rate > 60; Glucose 283 mg/dL (65-110); Potassium 4.1 mmol/L (3.4-5.0); Sodium 126 mmol/L (137-145)
[2021-12-07] MEDS: METOPROLOL TARTRATE INJ 5 MG/5 ML VIAL IV PUSH (13:58)
[2021-12-07 14:14] LABS: CRP 22.1 mg/dL (<1.0)
--- NOTE | 2021-12-07 14:28 | PCSTNOTE ---
Radiology and Speech Therapy are available to coordinate to do Modified Barium Swallow tomorrow around 8:30 am.
[2021-12-07 14:43] LABS: Erythrocyte Sedimentation Rate 64 mm/hr (0-20)
[2021-12-07 14:47] LABS: Burr Cells 2+ (NORMAL); Platelet Estimate Adequate (Adequate)
--- NOTE | 2021-12-07 16:03 | PM.CNCAR ---
Assessment and Plan Assessment and plan (1) Preop cardiovascular exam: Code(s): Z01.810 - Encounter for preprocedural cardiovascular examination Status: Acute Assessment and Plan: Risk profile: age, PAD, DM, hypertension, atrial fibrillation, dyslipidemia. Functional status:<4 METs. Last echo on 09/05/19 EF 60-65%, diastolic dysfunction (E/e' 12), mild LAE, trace AI, mild-mod MR, mild TR, RVSP 41 mmHg. Given his recent sepsis, I would hold off on pursuing a stress test. Recheck echo. Given the above risk profile and functional status he would be at at least moderate to high surgical risk. However, if surgery is necessary to avoid progressive sepsis/septic shock then may proceed with surgery. (2) Peripheral arterial disease: Code(s): I73.9 - Peripheral vascular disease, unspecified Status: Acute Assessment and Plan: Based on BERNARDA and TBI: right mild-mod PAD and left mild PAD. (3) Hypertension: Code(s): I10 - Essential (primary) hypertension Status: Acute Assessment and Plan: Stable. (4) Dyslipidemia: Code(s): E78.5 - Hyperlipidemia, unspecified Status: Acute (5) Paroxysmal atrial fibrillation: Code(s): I48.0 - Paroxysmal atrial fibrillation Status: Acute Assessment and Plan: [id number] 4. On Eliquis. Rate controlled on Metoprolol. (6) Insulin dependent type 2 diabetes mellitus: Code(s): E11.9 - Type 2 diabetes mellitus without complications; Z79.4 - rodent exterminator (current) use of insulin Status: Acute Assessment and Plan: Managed by hospitalist. (7) Sepsis: Qualifiers: Sepsis acute organ dysfunction status: without acute organ dysfunction Sepsis type: sepsis due to unspecified organism Qualified Code(s): A41.9 - Sepsis, unspecified organism Code(s): A41.9 - Sepsis, unspecified organism Status: Acute Assessment and Plan: On antibiotics and wound care. History of Present Illness History of Present Illness Consult date/time: 12/07/21 16:03 Reason for consult: Preop risk stratification. 47 yr old man who I saw one time on 09/05/19 in the office as a consult but did not follow up with me, who's PCP was Dr. Jenkins. He has a history of atrial fibrillation (rate controlled and on Eliquis), dyslipidemia, hypertension, DM, PAD. He reports for the last several days he had weakness, was not eating or drinking and had hiccups. It was found he was septic with a diabetic foot ulcer/cellulitis and dehydration. He had rapid atrial fibrillation and Diltiazem drip was started. He was given IV fluids and antibiotics, and his HR improved. Diltiazem drip stopped and he is back on home dose of Metoprolol. He normally walks up to 1 block and limited by leg weakness. Denies chest pain, sob, orthopnea, PND, edema, dizziness. Reason For Visit: Sepsis AFIB RVR Review of Systems Review of Systems: All systems reviewed & are unremarkable except as noted in HPI and below Constitutional: Constitutional: Reports as per HPI, Reports chills, Reports fatigue and Denies fever(s) Cardiovascular: Cardiovascular: Reports as per HPI, Denies chest pain, Denies leg edema and Denies lightheadedness Respiratory: Respiratory: Reports as per HPI and Denies dyspnea Gastrointestinal: Gastrointestinal: Reports as per HPI and Denies abdominal pain Genitourinary: Genitourinary: Reports as per HPI and Denies dysuria Musculoskeletal: Musculoskeletal: Reports as per HPI Neurologic: Reports as per HPI, Denies dizziness and Denies syncope PMFSH Past Medical History Medical History BPH associated with nocturia Cerebrovascular accident Resultant memory and cognitive deficits. Cognitive impairment Diabetic peripheral neuropathy Dyslipidemia Hypertension Insulin dependent type 2 diabetes mellitus Kidney stones Overactive bladder Paroxysmal atrial fibrillation Surgical Hi
[2021-12-07 16:08] LABS: Glucose Point of Care 323 mg/dl (65-105)
[2021-12-07] MEDS: INSULIN ASPART (*BKC) 100 UNITS/ML 10 UNITS SUB-Q (17:51)
[2021-12-07 20:04] LABS: Glucose Point of Care 248 mg/dl (65-105)
[2021-12-07] MEDS: FAMOTIDINE 20 MG TABLET PO (20:21)
[2021-12-07] MEDS: INSULIN GLARGINE (*BKC) 100 UNITS/ML 25 UNITS SUB-Q (20:21)
[2021-12-07] MEDS: METOPROLOL TARTRATE 25 MG TABLET 75 MG PO (21:13)
[2021-12-08] VITALS (17 sets, daily range): BP systolic 109–149; BP diastolic 69–90; PULSE 79–129; RESP 17–24; TEMP 36.3–37; O2SAT 95–99
--- NOTE | 2021-12-08 | ECHO_ITS ---
Patient Info Name: Aron Rose Age: 86 years : 1935 Gender: Male Ht: 68 in Wt: 222 lbs BSA: 2.23 m2 HR: 112 bpm BP: 135 / 69 mmHg Heart Rhythm: Atrial Fibrillation Technical Quality: Fair Exam Date: 12/08/2021 7:32 AM Exam Location: Echo Lab Patient Status: Inpatient Admit Date: 12/05/2021 Staff Ordering Physician: Agus Celaya DO X Ray Nurse: Kylie Silva RDCS Attending Provider: Karina Mcfadden DO Referring Physician: Yomi ANN; Exam Type: CA echo doppler color flow Study Info Indications - preop Complete two-dimensional, color flow and Doppler transthoracic echocardiogram is performed with contrast to opacify the left ventricle and to improve the deliniation of the left ventricle endocardial borders. Contrast/Agitated Saline Contrast/Ag. Saline: Definity Amount: 2.00 ml Administered By: Kylie Silva RDCS Existing IV Access: Yes IV Access Condition: patent with no signs of infiltration Summary 1. Left ventricular chamber dimension is normal. 2. Definity contrast administered improved wall motion interpretation. 3. Left ventricular systolic function is normal, estimated at 55-60%. 4. The left ventricular diastolic function is abnormal. 5. E/e' 10 is mildly elevated. 6. Atrial fibrillation. 7. Left atrial chamber dimension is moderately enlarged. 8. There is moderate aortic valve sclerosis. 9. There is mild aortic valve stenosis with a peak velocity of 188 cm/s, mean gradient of 6 mmHg, and aortic valve area of 1.7 cm2. 10. The mitral valve has moderately calcified annulus. 11. No pulmonary hypertension, estimated pulmonary arterial systolic pressure is 34 mmHg. Left Ventricle E/e' 10 is mildly elevated. Atrial fibrillation. Definity contrast administered improved wall motion interpretation. Left ventricular chamber dimension is normal. Left ventricular systolic function is normal, estimated at 55-60%. The left ventricular diastolic function is abnormal. Right Ventricle Right ventricular chamber dimension is normal. Right ventricular systolic function is normal. Left Atria Left atrial chamber dimension is moderately enlarged. Right Atria Right atrial chamber dimension is normal. Aortic Valve The aortic valve is not well visualized. Cannot determine number of aortic valve leaflets. There is moderate aortic valve sclerosis. There is mild aortic valve stenosis with a peak velocity of 188 cm/s, mean gradient of 6 mmHg, and aortic valve area of 1.7 cm2. There is no aortic valve regurgitation. Pulmonic Valve There is no pulmonic regurgitation. Mitral Valve The mitral valve has moderately calcified annulus. There is no mitral valve stenosis. There is no mitral valve regurgitation. Tricuspid Valve There is no tricuspid valve regurgitation. No pulmonary hypertension, estimated pulmonary arterial systolic pressure is 34 mmHg. Pericardium/Pleural There is no pericardial effusion. Inferior Vena Cava Normal inferior vena cava with >50% collapse upon inspiration consistent with normal right atrial pressure, 5 mmHg. Aorta The aortic root size at the sinus of Valsalva is normal. Left Ventricular Outflow Tract Name Value Normal LVOT 2D
[2021-12-08] MEDS: LACTATED RINGERS 1,000 ML 100 ML IV CONT ×3 (00:07→23:38)
--- NOTE | 2021-12-08 07:49 | PCOTNOTE ---
Attempted OT evaluation, patient currently having test completed at this time, will follow.
--- NOTE | 2021-12-08 07:51 | PM.PNCARD ---
Progress Note: A&P Assessment and Plan (1) Preop cardiovascular exam: Code(s): Z01.810 - Encounter for preprocedural cardiovascular examination Status: Acute Assessment and Plan: Risk profile: age, PAD, DM, hypertension, atrial fibrillation, dyslipidemia. Functional status:<4 METs. Last echo on 09/05/19 EF 60-65%, diastolic dysfunction (E/e' 12), mild LAE, trace AI, mild-mod MR, mild TR, RVSP 41 mmHg. Given his recent sepsis, I would hold off on pursuing a stress test. Recheck echo today. Given the above risk profile and functional status he would be at at least moderate to high surgical risk. However, if surgery is necessary to avoid progressive sepsis/septic shock then may proceed with surgery. (2) Peripheral arterial disease: Code(s): I73.9 - Peripheral vascular disease, unspecified Status: Acute Assessment and Plan: Based on BERNARDA and TBI: right mild-mod PAD and left mild PAD. (3) Hypertension: Code(s): I10 - Essential (primary) hypertension Status: Acute Assessment and Plan: Stable. (4) Dyslipidemia: Code(s): E78.5 - Hyperlipidemia, unspecified Status: Acute (5) Paroxysmal atrial fibrillation: Code(s): I48.0 - Paroxysmal atrial fibrillation Status: Acute Assessment and Plan: [id number] 4. On Eliquis. Rate is mildly rapid on Metoprolol tartate 25 mg BID. Increase Metoprolol tartate 75 mg BID. (6) Insulin dependent type 2 diabetes mellitus: Code(s): E11.9 - Type 2 diabetes mellitus without complications; Z79.4 - terminal manager (current) use of insulin Status: Acute Assessment and Plan: Managed by hospitalist. (7) Sepsis: Qualifiers: Sepsis acute organ dysfunction status: without acute organ dysfunction Sepsis type: sepsis due to unspecified organism Qualified Code(s): A41.9 - Sepsis, unspecified organism Code(s): A41.9 - Sepsis, unspecified organism Status: Acute Assessment and Plan: On antibiotics and wound care. Subjective Date/time seen: 12/08/21 07:51 Denies chest pain or sob. Exam Const: General: cooperative, healthy appearing and comfortable Resp: Auscultation: clear to auscultation bilaterally, no crackles, no rales, no rhonchi and no wheezes Cardio: Jugular venous distension: no JVD Rate: tachycardic Rhythm: abnormal rhythm Heart sounds: no murmurs Peripheral pulses: dorsalis pedis present GI: GI Palp: No abdominal tenderness and Yes Soft to palpation Neuro: General: oriented to person, oriented to place and oriented to time Extrem: Right lower extremity: no edema Left lower extremity: no edema Objective Data Vital Signs Vital Signs: Vital Signs - 24 hr 12/07/21 08:00 12/07/21 09:27 12/07/21 10:00 Temperature 97.7 F Pulse Rate 109 H 108 H 115 H Respiratory Rate 28 H Blood Pressure 125/67 Pulse Oximetry 96 12/07/21 12:00 12/07/21 13:58 12/07/21 14:00 Temperature 98.4 F Pulse Rate 96 103 H 104 H Respiratory Rate 24 H Blood Pressure 129/78 Pulse Oximetry 97 12/07/21 16:00 12/07/21 17:48 12/07/21 18:00 Temperature 97.6 F Pulse Rate 101 H 115 H Respiratory Rate 32 H Blood Pressure 137/77 Pulse Oximetry 97 97 12/07/21 20:00 12/07/21 21:13 12/07/21 22:00 Temperature 99.0 F Pulse Rate 110 H 117 H 99 Respiratory Rate 22 H Blood Pressure 141/73 H Pulse Oximetry 99 12/07/21 23:30 12/08/21 00:00 12/08/21 02:00 Temperature 98.2 F Pulse Rate 96 106 H 102 H Respiratory Rate 22 H Blood Pressure 138/84 Pulse Oximetry 98 12/08/21 03:54 12/08/21 04:00 12/08/21 06:00 Temperature 98.3 F Pulse Rate 105 H 115 H 112 H Respiratory Rate 20 Blood Pressure 135/69 Pulse Oximetry 99 Intake/Output Intake/Output: Intake & Output 12/05/21 12/06/21 12/07/21 12/08/21 23:59 23:59 23:59 23:59 Intake Total 3650 5110 3760 250 Output Total 150 550 200 Balance 3650 6556 4679 50 Meds/
[2021-12-08 08:02] LABS: Glucose Point of Care 265 mg/dl (65-105)
[2021-12-08] MEDS: PERFLUTREN LIPID MICROSPHERES 1.5 ML VIAL DILUTED TO 10 ML TOTAL VOLUME IV PUSH (08:19)
[2021-12-08] MEDS: INSULIN ASPART (*BKC) 100 UNITS/ML SUB-Q ×2 (08:26→13:01)
[2021-12-08] MEDS: INSULIN ASPART (*BKC) 100 UNITS/ML 10 UNITS SUB-Q (08:27)
[2021-12-08] MEDS: SILVERGEL (ELTA) 45 ML 1 APPLIC TOPICAL (08:27)
[2021-12-08] MEDS: METOPROLOL TARTRATE 25 MG TABLET 75 MG PO (08:27)
[2021-12-08] MEDS: FINASTERIDE 5 MG TABLET PO (08:28)
[2021-12-08] MEDS: ATORVASTATIN 20 MG TABLET PO (08:28)
[2021-12-08] MEDS: TAMSULOSIN HCL 0.4 MG CAPSULE PO (08:28)
[2021-12-08] MEDS: FAMOTIDINE 20 MG TABLET PO (08:28)
[2021-12-08 11:04] LABS: Glucose Point of Care 296 mg/dl (65-105)
[2021-12-08 12:25] LABS: Glucose Point of Care 234 mg/dl (65-105)
--- NOTE | 2021-12-08 12:27 | PM.IMPN ---
Progress Note: A&P Assessment and Plan (1) Sepsis: Qualifiers: Sepsis acute organ dysfunction status: without acute organ dysfunction Sepsis type: sepsis due to unspecified organism Qualified Code(s): A41.9 - Sepsis, unspecified organism Code(s): A41.9 - Sepsis, unspecified organism Status: Acute Assessment and Plan: Supported by tachycardia, tachypnea, leukocytosis, and elevated lactic acid in the setting infection. SOFA score is 3. Lactic acid level has normalized with IV fluid rehydration. Urine culture positive for Streptococcus Chest x-ray positive for consolidation IV antibiotics (2) Diabetic foot ulcers: Code(s): E11.621 - Type 2 diabetes mellitus with foot ulcer; L97.509 - Non-pressure chronic ulcer of other part of unspecified foot with unspecified severity Status: Acute Assessment and Plan: Ulcer on the left plantar foot has an open area with scant purulent drainage. Ulcer over the right 2nd PIP joint with erythema and edema extending to the distal leg. Day 4 of vancomycin imipenem, appreciate surgical consultation Unlikely patient has osteomyelitis (3) Cellulitis of leg: Code(s): L03.119 - Cellulitis of unspecified part of limb Status: Acute Assessment and Plan: Continue antibiotics (4) Atrial fibrillation with rapid ventricular response: Code(s): I48.91 - Unspecified atrial fibrillation Status: Acute Assessment and Plan: s/p Cardizem drip. Continue metoprolol Continue apixaban for stroke prophylaxis. Cardiology recommendation impression No plan for stress test as patient is moderate to high risk (5) Abnormal chest x-ray: Code(s): R93.89 - Abnormal findings on diagnostic imaging of other specified body structures Status: Acute Assessment and Plan: Bibasilar atelectasis/consolidation noted on chest x-ray. Atelectasis noted at the bases and CT of the abdomen and pelvis. Patient negative for influenza A and B as well as COVID-19. Associated with acute hypoxemic respiratory Secondary to aspiration pneumonia Nasogastric tube placement Failed swallow evaluation on 12/08/2021 Will discuss with family regarding PEG tube (6) Dehydration: Code(s): E86.0 - Dehydration Status: Acute Assessment and Plan: He was given a 3 L bolus of fluids in the emergency department. Monitor volume status closely to avoid over-hydration. 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 Continue Lantus hold scheduled NovoLog Continue insulin sliding scale Patient is currently NPO Pending tube feeding Will resume NovoLog once tube feeding restarted (9) Cough: Code(s): R05.9 - Cough, unspecified Status: Acute Assessment and Plan: As above Subjective Date/time seen: 12/08/21 12:27 Interval history: 86 years old male with past medical history of AFib peripheral vascular disease diabetes hypertension presented to the hospital with generalized weakness was found to have sepsis cellulitis of lower extremity and foot ulcer surgery was consulted patient was found to have cellulitis and probable pneumonia presented on admission patient developed worsening respiratory failure swallow evaluation was done patient failed swallow evaluation nasogastric tube was placed on 12/08/2021 Also during hospitalization patient had episode of AFib with RVR treated with Cardizem drip cardiology was consulted Cardizem drip was discontinued and patient treated with antibiotic Wound cultures positive for Streptococcus Surgery follow-up Patient fee
[2021-12-08 12:56] LABS: Basophils Absolute Auto 0.1 K/mm3 (0.0-0.1); Basophils Percent Auto 0.4 % (0.2-1.2); Eosinophils Absolute Auto 0.3 K/mm3 (0-0.3); Eosinophils Percent Auto 1.6 % (0-4.4); Hematocrit 38.4 % (42.0-52.0); Hemoglobin 12.5 g/dL (14.0-18.0); Immature Granulocyte Absolute 0.34 K/mm3 (0.00-0.031); Immature Granulocyte Percent A 2.1 % (0-0.5); Lymphocytes Absolute Auto 0.96 K/mm3 (0.9-3.2); Lymphocytes Percent Auto 6.1 % (18.3-44.2); Mean Corpuscular HGB Conc 32.6 g/dl (32-36); Mean Corpuscular Hemoglobin 28.8 pg (26-34); Mean Corpuscular Volume 88.5 fl (80-100); Mean Platelet Volume 10.3 fl (7.4-10.4); Monocytes Absolute Auto 1.2 K/mm3 (0.1-0.6); Monocytes Percent Auto 7.3 % (2.6-8.5); Neutrophils Absolute Auto 13.1 K/mm3 (1.3-6.7); Neutrophils Percent Auto 82.5 % (45.5-73.1); Platelet Count Result 340 k/mm3 (150-375); Red Blood Count 4.34 M/mm3 (4.6-6.20); Red Cell Distribution Width 13.7 % (11.5-14.5); White Blood Count 15.8 K/mm3 (4.5-10.0)
[2021-12-08 13:06] LABS: Alanine Aminotransferase 23 U/L (6-50); Albumin Level 2.9 g/dL (3.5-5.1); Alkaline Phosphatase 102 U/L (38-126); Anion Gap 5 mmol/L (8-16); Aspartate Amino Transferase 29 U/L (17-59); Bilirubin,Total 1.1 mg/dL (0.2-1.3); Blood Urea Nitrogen 15 mg/dL (9-20); Carbon Dioxide 24 mmol/L (22-30); Chloride 98 mmol/L (98-107); Estimated CRCL calculation 76 ml/min; Estimated Glomerular Filt Rate > 60; Glucose 233 mg/dL (65-110); Potassium 3.8 mmol/L (3.4-5.0); Sodium 127 mmol/L (137-145)
--- NOTE | 2021-12-08 14:01 | PM.PNGS ---
Progress Note: A&P Assessment and Plan (1) Diabetic foot ulcers: Code(s): E11.621 - Type 2 diabetes mellitus with foot ulcer; L97.509 - Non-pressure chronic ulcer of other part of unspecified foot with unspecified severity Status: Acute Assessment and Plan: Re-evaluated the patient's wounds today with Dr. Guevara. The two areas of eschar on the left foot have a small opening in the center of each that connect upon probing. There is some vazquez drainage coming from these openings. We could consider using local anesthetic and making an incision between these two openings to allow this to better drain in the next few days if needed. This does not need to be done urgently. The patient failed his MBS today, and he and his family are considering Hospice. Will continue local wound care with silver gel dressing changes for now and continue to follow along. (2) Sepsis: Qualifiers: Sepsis acute organ dysfunction status: without acute organ dysfunction Sepsis type: sepsis due to unspecified organism Qualified Code(s): A41.9 - Sepsis, unspecified organism Code(s): A41.9 - Sepsis, unspecified organism Status: Acute Assessment and Plan: Urinary vs pulmonary vs less likely skin source. Plain films of bilateral feet showed no evidence of osteomyelitis. Concern for aspiration pneumonia. Patient failed MBS study today. Continue broad-spectrum IV antibiotics and medical management. Leukocytosis improving. (3) Peripheral arterial disease: Code(s): I73.9 - Peripheral vascular disease, unspecified Status: Acute Assessment and Plan: ABIs noted. Able to doppler DP and PT pulses bilaterally on exam yesterday. He has developed some right foot skin changes that are concerning for ischemic changes. He is limited on options for vascular intervention if needed. They are considering Hospice at this time. Will continue to monitor closely. (4) Atrial fibrillation with rapid ventricular response: Code(s): I48.91 - Unspecified atrial fibrillation Status: Acute Assessment and Plan: Improving rate control, now in the 80-90's. Cardiology was consulted. 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 Guevara. Subjective Subjective Date/Time Seen: 12/08/21 14:01 Patient reports: no new complaints Interval history: Patient seen and examined with Dr. Guevara. No family at the bedside. He has no specific complaints. Patient failed his modified barium swallow study today. Exam Const: General: comfortable, no acute distress, awake and ill appearing chronically Orientation/consciousness: confusion (at times) Skin: Other: Left foot dressing removed and there are small openings to the dark eschar areas over the 4th and 5th metatarsals on the plantar aspect that has purulent drainage and with probing both openings do connect with only a small amount of superficial eschar overlying the Q-tip when probing. Still no surrounding erythema or edema of the left foot. Vascular exam unchanged. Right foot with small open wound of the plantar aspect of the right 2nd toe and now with dark red discoloration of the toe and new changes of nonblanchable pink/purple dis
[2021-12-08] MEDS: AMPICILLIN SULB 3 GM/NS 100 ML 3 GM/100 ML VIAL IVPB ×2 (15:50→20:44)
[2021-12-08 17:39] LABS: Glucose Point of Care 193 mg/dl (65-105)
[2021-12-08 20:42] LABS: Glucose Point of Care 207 mg/dl (65-105)
[2021-12-08] MEDS: METOPROLOL TARTRATE INJ 5 MG/5 ML VIAL IV PUSH (20:44)
[2021-12-08] MEDS: INSULIN GLARGINE (*BKC) 100 UNITS/ML 7 UNITS SUB-Q (20:46)
[2021-12-08 21:02] LABS: Vancomycin Trough 18.6 ug/mL (10.0-20.0)
[2021-12-09] VITALS (14 sets, daily range): BP systolic 107–155; BP diastolic 66–112; PULSE 89–133; RESP 17–22; TEMP 36.2–37; O2SAT 94–99; BMI 33.6
[2021-12-09 00:10] LABS: Glucose Point of Care 253 mg/dl (65-105)
[2021-12-09] MEDS: INSULIN ASPART (*BKC) 100 UNITS/ML SUB-Q ×4 (00:57→17:49)
[2021-12-09] MEDS: AMPICILLIN SULB 3 GM/NS 100 ML 3 GM/100 ML VIAL IVPB ×4 (01:03→21:13)
[2021-12-09 04:57] LABS: Basophils Absolute Auto 0.1 K/mm3 (0.0-0.1); Basophils Percent Auto 0.4 % (0.2-1.2); Eosinophils Absolute Auto 0.3 K/mm3 (0-0.3); Eosinophils Percent Auto 1.5 % (0-4.4); Hematocrit 36.2 % (42.0-52.0); Hemoglobin 12.3 g/dL (14.0-18.0); Immature Granulocyte Absolute 0.24 K/mm3 (0.00-0.031); Immature Granulocyte Percent A 1.3 % (0-0.5); Lymphocytes Absolute Auto 1.05 K/mm3 (0.9-3.2); Lymphocytes Percent Auto 5.6 % (18.3-44.2); Mean Corpuscular Hemoglobin 29.4 pg (26-34); Mean Corpuscular Volume 86.4 fl (80-100); Mean Platelet Volume 10.2 fl (7.4-10.4); Monocytes Absolute Auto 1.5 K/mm3 (0.1-0.6); Neutrophils Absolute Auto 15.5 K/mm3 (1.3-6.7); Neutrophils Percent Auto 83.2 % (45.5-73.1); Platelet Count Result 380 k/mm3 (150-375); Red Blood Count 4.19 M/mm3 (4.6-6.20); Red Cell Distribution Width 13.5 % (11.5-14.5); White Blood Count 18.6 K/mm3 (4.5-10.0)
[2021-12-09 05:13] LABS: Alanine Aminotransferase 21 U/L (6-50); Albumin Level 2.8 g/dL (3.5-5.1); Alkaline Phosphatase 110 U/L (38-126); Anion Gap 5 mmol/L (8-16); Aspartate Amino Transferase 26 U/L (17-59); Bilirubin,Total 1.1 mg/dL (0.2-1.3); Blood Urea Nitrogen 12 mg/dL (9-20); Calcium 7.8 mg/dL (8.4-10.2); Carbon Dioxide 23 mmol/L (22-30); Chloride 99 mmol/L (98-107); Estimated CRCL calculation 76 ml/min; Estimated Glomerular Filt Rate > 60; Glucose 208 mg/dL (65-110); Potassium 3.5 mmol/L (3.4-5.0); Sodium 127 mmol/L (137-145)
--- NOTE | 2021-12-09 07:56 | PM.PNCARD ---
Progress Note: A&P Assessment and Plan (1) Preop cardiovascular exam: Code(s): Z01.810 - Encounter for preprocedural cardiovascular examination Status: Acute Assessment and Plan: Risk profile: age, PAD, DM, hypertension, atrial fibrillation, dyslipidemia. Functional status:<4 METs. Last echo on 09/05/19 EF 60-65%, diastolic dysfunction (E/e' 12), mild LAE, trace AI, mild-mod MR, mild TR, RVSP 41 mmHg. Given his recent sepsis, I would hold off on pursuing a stress test. Echo 12/08/21 shows EF 55-60%, mild diastolic dysfunction (E/e' 10), mod LAE, mild (LUIS DANIEL 1.7 cm2), mod MAC. Given the above risk profile and functional status he would be at at least moderate to high surgical risk. However, if surgery is necessary to avoid progressive sepsis/septic shock then may proceed with surgery. (2) Peripheral arterial disease: Code(s): I73.9 - Peripheral vascular disease, unspecified Status: Acute Assessment and Plan: Based on BERNARDA and TBI: right mild-mod PAD and left mild PAD. (3) Hypertension: Code(s): I10 - Essential (primary) hypertension Status: Acute Assessment and Plan: Stable. (4) Dyslipidemia: Code(s): E78.5 - Hyperlipidemia, unspecified Status: Acute (5) Paroxysmal atrial fibrillation: Code(s): I48.0 - Paroxysmal atrial fibrillation Status: Acute Assessment and Plan: [id number] 4. Was on Eliquis until NPO. Was rate controlled with Metoprolol Succinate 50 mg BID. Increased Metoprolol tartate 75 mg BID, however he is NPO including medication due to failed swallow study. He is on Metoprolol Tartate 5 mg IV Q6HR prn for HR >120 bpm. Depending on plan for PEG tube or other surgical procedure, in the interim he needs to be on Lovenox for anticoagulation. (6) Insulin dependent type 2 diabetes mellitus: Code(s): E11.9 - Type 2 diabetes mellitus without complications; Z79.4 - buttermaker continuous churn (current) use of insulin Status: Acute Assessment and Plan: Managed by hospitalist. (7) Sepsis: Qualifiers: Sepsis acute organ dysfunction status: without acute organ dysfunction Sepsis type: sepsis due to unspecified organism Qualified Code(s): A41.9 - Sepsis, unspecified organism Code(s): A41.9 - Sepsis, unspecified organism Status: Acute Assessment and Plan: On antibiotics and wound care. Subjective Date/time seen: 12/09/21 07:56 Denies chest pain or sob. Exam Const: General: cooperative, healthy appearing and comfortable Resp: Auscultation: clear to auscultation bilaterally, no crackles, no rales, no rhonchi and no wheezes Cardio: Jugular venous distension: no JVD Rate: tachycardic Rhythm: abnormal rhythm Heart sounds: no murmurs Peripheral pulses: dorsalis pedis present GI: GI Palp: No abdominal tenderness and Yes Soft to palpation Neuro: General: oriented to person, oriented to place and oriented to time Extrem: Right lower extremity: no edema Left lower extremity: no edema Objective Data Vital Signs Vital Signs: Vital Signs - 24 hr 12/08/21 08:00 12/08/21 08:07 12/08/21 08:27 Temperature 98.6 F Pulse Rate 116 H 93 115 H Respiratory Rate 18 18 Blood Pressure 140/75 Pulse Oximetry 97 95 12/08/21 10:00 12/08/21 11:14 12/08/21 12:00 Temperature 97.4 F L Pulse Rate 99 79 93 Respiratory Rate 18 Blood Pressure 109/71 Pulse Oximetry 97 12/08/21 14:00 12/08/21 16:00 12/08/21 18:07 Temperature 98.3 F Pulse Rate 104 H 115 H 119 H Respiratory Rate 17 Blood Pressure 149/89 H Pulse Oximetry 97 12/08/21 19:55 12/08/21 20:00 12/08/21 22:00 Temperature 97.9 F Pulse Rate 129 H 118 H 107 H Respiratory Rate 24 H Blood Pressure 148/90 H Pulse Oximetry 99 12/09/21 00:00 12/09/21 02:00 12/09/21 04:00 Temperature 98.6 F 97.6 F Pulse Rate 133 H 128 H 126 H Respiratory Rate 22 H 20 Blood Pressure 149/86 H 147/66 H Pulse Oximetry 99 98 0
--- NOTE | 2021-12-09 09:19 | PCSTNOTE ---
Attempted ST treatment on this date, but patient refused.
[2021-12-09] MEDS: SILVERGEL (ELTA) 45 ML 1 APPLIC TOPICAL (09:38)
[2021-12-09] MEDS: LACTATED RINGERS 1,000 ML 100 ML IV CONT (09:39)
[2021-12-09 12:50] LABS: Glucose Point of Care 279 mg/dl (65-105)
--- NOTE | 2021-12-09 13:22 | PM.IMPN ---
Progress Note: A&P Assessment and Plan (1) Sepsis: Qualifiers: Sepsis acute organ dysfunction status: without acute organ dysfunction Sepsis type: sepsis due to unspecified organism Qualified Code(s): A41.9 - Sepsis, unspecified organism Code(s): A41.9 - Sepsis, unspecified organism Status: Acute Assessment and Plan: Supported by tachycardia, tachypnea, leukocytosis, and elevated lactic acid in the setting infection. SOFA score is 3. Lactic acid level has normalized with IV fluid rehydration. Urine culture positive for Streptococcus Chest x-ray positive for consolidation IV antibiotics (2) Diabetic foot ulcers: Code(s): E11.621 - Type 2 diabetes mellitus with foot ulcer; L97.509 - Non-pressure chronic ulcer of other part of unspecified foot with unspecified severity Status: Acute Assessment and Plan: Ulcer on the left plantar foot has an open area with scant purulent drainage. Ulcer over the right 2nd PIP joint with erythema and edema extending to the distal leg. Day 4 of vancomycin imipenem, appreciate surgical consultation Unlikely patient has osteomyelitis (3) Cellulitis of leg: Code(s): L03.119 - Cellulitis of unspecified part of limb Status: Acute Assessment and Plan: Continue antibiotics (4) Atrial fibrillation with rapid ventricular response: Code(s): I48.91 - Unspecified atrial fibrillation Status: Acute Assessment and Plan: s/p Cardizem drip. Continue metoprolol Continue apixaban for stroke prophylaxis. Cardiology recommendation impression No plan for stress test as patient is moderate to high risk (5) Abnormal chest x-ray: Code(s): R93.89 - Abnormal findings on diagnostic imaging of other specified body structures Status: Acute Assessment and Plan: Bibasilar atelectasis/consolidation noted on chest x-ray. Atelectasis noted at the bases and CT of the abdomen and pelvis. Patient negative for influenza A and B as well as COVID-19. Associated with acute hypoxemic respiratory Secondary to aspiration pneumonia Dobbhoff placement Broad-spectrum IV antibiotic Failed swallow evaluation on 12/08/2021 Patient failed swallow evaluation (6) Dehydration: Code(s): E86.0 - Dehydration Status: Acute Assessment and Plan: He was given a 3 L bolus of fluids in the emergency department. Monitor volume status closely to avoid over-hydration. 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 On Lantus continue to hold scheduled NovoLog until patient start on tube feeding Continue insulin sliding scale Patient is currently NPO Pending tube feeding placement Will resume NovoLog once tube feeding restarted (9) Cough: Code(s): R05.9 - Cough, unspecified Status: Acute Assessment and Plan: multifactorial most likely related to pneumonia and probable acute on top of chronic diastolic CHF exacerbation Continue antibiotic DC IV fluid Give 2 doses of IV Lasix Re-evaluate Subjective Date/time seen: 12/09/21 13:22 Interval history: 86 years old male with past medical history of AFib peripheral vascular disease diabetes hypertension presented to the hospital with generalized weakness was found to have sepsis cellulitis of lower extremity and foot ulcer surgery was consulted patient was found to have cellulitis and probable pneumonia presented on admission patient developed worsening respiratory failure swallow evaluation was done patient failed swallow evaluation nasogastric tube was placed on 12/08/2021 Also que
--- NOTE | 2021-12-09 13:31 | PCOTNOTE ---
Per RN, patient's family not pursuing hospice at this time. Patient to have NG tube placed today. RN asked OT to resume services after NG tube placed. Will continue plan of care as appropriate.
--- NOTE | 2021-12-09 15:06 | PCDIET ---
Dietitian consult for tube feedings recommendations. MD orders for Glucerna 1.2 at 20 ml/hr advance by 10 ml q 4 hours to goal rate of 65 ml/hr. Tube feeding at goal rate will provide 1716 kcals/86 gms protein/1151 ml water. Free water flush 30 ml q 4 hours. Thank you for the consult.
[2021-12-09 15:44] LABS: Sodium 126 mmol/L (137-145)
--- NOTE | 2021-12-09 16:33 | P.OP_ITS ---
Procedure Note - Detailed Date of Procedure 12/09/21 Pre-op Diagnosis Left diabetic foot ulcers, sepsis Post-op Diagnosis Same Procedure Performed Excisional debridement of left diabetic foot ulcers of skin and subcutaneous tissues, measuring 1 cm x 2.5 cm Surgeon Tracey Seaman, AUTOMOTIVE REFINISH TECHNICIAN Anesthesia None Indications This is an 86 year old poorly controlled diabetic with multiple other medical issues who presented with sepsis of an unclear source. Possible urinary tract infection, possible pneumonia, and bilateral diabetic foot ulcers. Plain films of bilateral feet showed no evidence of osteomyelitis. He was found to have some vazquez drainage from the left foot ulcers and with probing it appears there was an opening connecting the two areas of eschar with overlying callus. I am now seeing him to do a bedside excisional debridement of the left diabetic foot ulcers. Findings After the callus and eschar was debrided, this revealed two clean ulcers with a pink firm wound bed and no purulent drainage. Description of Procedure The patient was placed in the supine position in the bed and I elevated his left foot up on a pillow to allow for better visualization. Following this, sterile prep was carried out over the wound with iodine swabs and the left foot was draped in sterile fashion. I then probed the small opening in the more lateral eschar on the left foot and this again connected to an opening in the medial wound. I then used scissors to begin removing this overlying callus on the edges that was connected to the bridge of callus between the two ulcers. I debrided all of this area, as well as the eschar overlying both wounds. I carried the debridement down to subcutaneous tissue. This revealed healthy pink skin and two small open ulcers with firm pink wound beds. I used a Q-tip to probe the base and edges of the wounds, and there were no areas of tunneling. They do not appear to connect, there is healthy skin sitting between the two ulcers. I did not run into any purulent drainage during the debridement. I then removed the remaining thick callus that was along the wound edges to clean this up. No bleeding was encountered. The wounds were fully inspected and there was no remaining eschar or necrotic tissue. I then applied silver gel to the wound beds and covered with sterile gauze and tape. The patient tolerated the procedure well and was comfortable without any need for local anesthetic. Estimated Blood Loss 0 Drains No Packing No Pathology None sent Complications None Condition Stable Disposition No change
[2021-12-09 17:24] LABS: Glucose Point of Care 212 mg/dl (65-105)
[2021-12-09] MEDS: FUROSEMIDE INJ 40 MG/4 ML VIAL IV PUSH (17:50)
[2021-12-09 19:46] LABS: Lidocaine <1.0 mg/L (1.5-5.0)
[2021-12-09 21:07] LABS: Glucose Point of Care 207 mg/dl (65-105)
[2021-12-09] MEDS: METOPROLOL TARTRATE 25 MG TABLET 75 MG FEED TUBE (21:16)
[2021-12-09] MEDS: FAMOTIDINE 20 MG TABLET FEED TUBE (21:16)
[2021-12-09] MEDS: APIXABAN 5 MG TABLET FEED TUBE (21:16)
[2021-12-09] MEDS: INSULIN GLARGINE (*BKC) 100 UNITS/ML 7 UNITS SUB-Q (21:17)
[2021-12-10] VITALS (11 sets, daily range): BP systolic 116–152; BP diastolic 70–87; PULSE 88–127; RESP 18–24; TEMP 36.3–37.3; O2SAT 95–100; BMI 33.6
[2021-12-10 00:32] LABS: Glucose Point of Care 300 mg/dl (65-105)
[2021-12-10] MEDS: INSULIN ASPART (*BKC) 100 UNITS/ML SUB-Q ×5 (00:35→23:52)
[2021-12-10] MEDS: AMPICILLIN SULB 3 GM/NS 100 ML 3 GM/100 ML VIAL IVPB ×4 (04:09→21:25)
[2021-12-10 05:22] LABS: Basophils Absolute Auto 0.1 K/mm3 (0.0-0.1); Basophils Percent Auto 0.4 % (0.2-1.2); Eosinophils Absolute Auto 0.2 K/mm3 (0-0.3); Eosinophils Percent Auto 1.2 % (0-4.4); Hematocrit 37.1 % (42.0-52.0); Hemoglobin 12.4 g/dL (14.0-18.0); Immature Granulocyte Absolute 0.31 K/mm3 (0.00-0.031); Immature Granulocyte Percent A 1.7 % (0-0.5); Lymphocytes Absolute Auto 1.22 K/mm3 (0.9-3.2); Lymphocytes Percent Auto 6.7 % (18.3-44.2); Mean Corpuscular HGB Conc 33.4 g/dl (32-36); Mean Corpuscular Hemoglobin 29.5 pg (26-34); Mean Corpuscular Volume 88.3 fl (80-100); Mean Platelet Volume 10.3 fl (7.4-10.4); Monocytes Absolute Auto 1.4 K/mm3 (0.1-0.6); Monocytes Percent Auto 7.5 % (2.6-8.5); Neutrophils Absolute Auto 15.1 K/mm3 (1.3-6.7); Neutrophils Percent Auto 82.5 % (45.5-73.1); Platelet Count Result 399 k/mm3 (150-375); Red Cell Distribution Width 14.1 % (11.5-14.5); White Blood Count 18.3 K/mm3 (4.5-10.0)
[2021-12-10 05:32] LABS: Alanine Aminotransferase 35 U/L (6-50); Albumin Level 2.8 g/dL (3.5-5.1); Alkaline Phosphatase 122 U/L (38-126); Anion Gap 8 mmol/L (8-16); Aspartate Amino Transferase 49 U/L (17-59); Bilirubin,Total 0.9 mg/dL (0.2-1.3); Blood Urea Nitrogen 15 mg/dL (9-20); Calcium 7.9 mg/dL (8.4-10.2); Carbon Dioxide 26 mmol/L (22-30); Chloride 95 mmol/L (98-107); Estimated CRCL calculation 67 ml/min; Estimated Glomerular Filt Rate > 60; Glucose 233 mg/dL (65-110); Potassium 3.5 mmol/L (3.4-5.0); Sodium 129 mmol/L (137-145)
--- NOTE | 2021-12-10 08:00 | PM.PNCARD ---
Progress Note: A&P Assessment and Plan (1) Preop cardiovascular exam: Code(s): Z01.810 - Encounter for preprocedural cardiovascular examination Status: Acute Assessment and Plan: Risk profile: age, PAD, DM, hypertension, atrial fibrillation, dyslipidemia. Functional status:<4 METs. Last echo on 09/05/19 EF 60-65%, diastolic dysfunction (E/e' 12), mild LAE, trace AI, mild-mod MR, mild TR, RVSP 41 mmHg. Given his recent sepsis, I would hold off on pursuing a stress test. Echo 12/08/21 shows EF 55-60%, mild diastolic dysfunction (E/e' 10), mod LAE, mild (LUIS DANIEL 1.7 cm2), mod MAC. Given the above risk profile and functional status he would be at at least moderate to high surgical risk. However, if surgery is necessary to avoid progressive sepsis/septic shock then may proceed with surgery. (2) Peripheral arterial disease: Code(s): I73.9 - Peripheral vascular disease, unspecified Status: Acute Assessment and Plan: Based on BERNARDA and TBI: right mild-mod PAD and left mild PAD. (3) Hypertension: Code(s): I10 - Essential (primary) hypertension Status: Acute Assessment and Plan: Stable. (4) Dyslipidemia: Code(s): E78.5 - Hyperlipidemia, unspecified Status: Acute Assessment and Plan: On Atorvastatin. (5) Paroxysmal atrial fibrillation: Code(s): I48.0 - Paroxysmal atrial fibrillation Status: Acute Assessment and Plan: [id number] 4. On Eliquis. Was rate controlled with Metoprolol Succinate 50 mg BID. Increased Metoprolol tartate 75 mg BID via DHT. 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 (7) Sepsis: Qualifiers: Sepsis acute organ dysfunction status: without acute organ dysfunction Sepsis type: sepsis due to unspecified organism Qualified Code(s): A41.9 - Sepsis, unspecified organism Code(s): A41.9 - Sepsis, unspecified organism Status: Acute Assessment and Plan: On antibiotics and wound care. Subjective Date/time seen: 12/10/21 08:00 Denies chest pain or sob. Exam Const: General: cooperative, healthy appearing and comfortable Resp: Auscultation: clear to auscultation bilaterally, no crackles, no rales, no rhonchi and no wheezes Cardio: Jugular venous distension: no JVD Rate: tachycardic Rhythm: abnormal rhythm Heart sounds: no murmurs Peripheral pulses: dorsalis pedis present GI: GI Palp: No abdominal tenderness and Yes Soft to palpation Neuro: General: oriented to person, oriented to place and oriented to time Extrem: Right lower extremity: no edema Left lower extremity: no edema Objective Data Vital Signs Vital Signs: Vital Signs - 24 hr 12/09/21 08:41 12/09/21 10:00 12/09/21 12:00 Temperature 97.4 F L Pulse Rate 119 H 114 H Respiratory Rate 19 Blood Pressure 155/92 H Pulse Oximetry 96 98 12/09/21 14:00 12/09/21 16:00 12/09/21 18:00 Temperature 98 F Pulse Rate 108 H 118 H 119 H Respiratory Rate 20 Blood Pressure 153/112 H Pulse Oximetry 95 12/09/21 20:00 12/09/21 20:59 12/10/21 00:00 Temperature 98.6 F 97.5 F L Pulse Rate 124 H 100 Respiratory Rate 20 24 H Blood Pressure 107/74 116/70 Pulse Oximetry 96 94 95 12/10/21 04:00 Temperature 97.5 F L Pulse Rate 104 H Respiratory Rate 20 Blood Pressure 152/78 H Pulse Oximetry 100 Intake/Output Intake/Output: Intake & Output 12/07/21 12/08/21 12/09/21 12/10/21 23:59 23:59 23:59 23:59 Intake Total 3760 2950 2400 431 Output Total 550 200 200 100 Balance 3210 2750 2200 331 Meds/Results Medications: Active Medications Generic Name Dose Route Start Last Admin Trade Name Freq PRN Reason Stop Dose Admin Apixaban 5 mg 12/09/21 21:00 12/09/21 21:16 Apixaban 5 Mg Tablet FEED TUBE 5 m
[2021-12-10] MEDS: APIXABAN 5 MG TABLET FEED TUBE ×2 (09:17→21:34)
[2021-12-10] MEDS: METOPROLOL TARTRATE 25 MG TABLET 75 MG FEED TUBE ×2 (09:17→21:34)
[2021-12-10] MEDS: FAMOTIDINE 20 MG TABLET FEED TUBE ×2 (09:18→21:34)
[2021-12-10] MEDS: SILVERGEL (ELTA) 45 ML 1 APPLIC TOPICAL (09:18)
[2021-12-10] MEDS: FUROSEMIDE INJ 40 MG/4 ML VIAL IV PUSH (09:18)
[2021-12-10 13:14] LABS: Glucose Point of Care 387 mg/dl (65-105)
--- NOTE | 2021-12-10 14:40 | PM.PNGS ---
Progress Note: A&P Assessment and Plan (1) Diabetic foot ulcers: Code(s): E11.621 - Type 2 diabetes mellitus with foot ulcer; L97.509 - Non-pressure chronic ulcer of other part of unspecified foot with unspecified severity Status: Acute Assessment and Plan: S/p debridement of left foot ulcers, which are healing well. No signs of infection. Continue with local wound care with silver gel dressing changes. Right 2nd toe ulcer with cellulitis has improved slightly today. Dr. Guevara discussed treatment options with the patient and his family at the bedside. We would recommend to continue medically treating this with broad-spectrum IV antibiotics and close monitoring. He has multiple co-morbidities that would make him a very high risk surgical candidate, along with his overall deconditioning, weakness, and age. If this does not improve with medical treatment, then the only surgical option would be an amputation, which the family wishes to avoid this if at all possible. (2) Cellulitis of leg: Code(s): L03.119 - Cellulitis of unspecified part of limb Status: Acute Assessment and Plan: Improving some. Continue IV antibiotics. (3) Peripheral arterial disease: Code(s): I73.9 - Peripheral vascular disease, unspecified Status: Acute (4) Sepsis: Qualifiers: Sepsis acute organ dysfunction status: without acute organ dysfunction Sepsis type: sepsis due to unspecified organism Qualified Code(s): A41.9 - Sepsis, unspecified organism Code(s): A41.9 - Sepsis, unspecified organism Status: Acute Assessment and Plan: Source unclear, pulmonary vs urinary vs skin vs multifactorial. WBC trended down but went up slightly again to 18K. Continue broad-spectrum IV antibiotics. Monitor labs. See plan above. (5) Atrial fibrillation with rapid ventricular response: Code(s): I48.91 - Unspecified atrial fibrillation Status: Acute (6) Anticoagulant long-term use: Code(s): Z79.01 - group home (current) use of anticoagulants Status: Acute (7) Diabetes mellitus with neuropathy: Qualifiers: Diabetes mellitus type: type 2 Diabetes mellitus fci insulin use: with tank terminal gauger use Qualified Code(s): E11.40 - Type 2 diabetes mellitus with diabetic neuropathy, unspecified; Z79.4 - group home (current) use of insulin Code(s): E11.40 - Type 2 diabetes mellitus with diabetic neuropathy, unspecified Status: Acute Additional Plan I have discussed the patient's case and plan of care with Dr. Guevara. Subjective Subjective Date/Time Seen: 12/10/21 14:40 Patient reports: no new complaints and afebrile Interval history: Patient now with a Dobhoff on tube feedings. No specific complaints. Exam Const: General: comfortable and no acute distress Orientation/consciousness: confusion (confused at times) Extrem: Other: Left foot ulcers look good with pink healthy wound bed, no purulent drainage, no surrounding erythema or signs of cellulitis Right foot with a small ulcer over the dorsal aspect of the 2nd toe with surrounding erythema improving and small blister appearing more decompressed Psych: Insight: Limited insight present (Psych) Judgement: Limited judgement present (Psych) Objective Data Vital Signs Vital Signs: Vital Signs - 24 hr 12/09/21 16:00 12/09/21 18:00 12/09/21 20:00 Temperature 98 F 98.6 F Pulse Rate 118 H 119 H 124 H Respiratory Rate 20 20 Blood Pressure 153/112 H 107/74 Pulse Oximetry 95 96 12/09/21 20:59 12/10/21 00:00 12/10/21 04:00 Temperature 97.5 F L 97.5 F L Pulse Rate 100 104 H Respiratory Rate 24 H 20 Blood Pressure 116/70 152/78 H Pulse Oximetry 94 95 100 12/10/21 08:00 12/10/21 09:17 12/10/21 10:00 Temperature 99.1 F Pulse Rate 105 H 111 H 88 Respiratory Rate 18 Blood Pressure 135/73 Pulse Oximetry 98 12/10/21 12:00 Temperature 98.0 F Pulse Rate 93 Respiratory Rate 18 Blood Pre
--- NOTE | 2021-12-10 16:05 | PM.IMPN ---
Progress Note: A&P Assessment and Plan (1) Sepsis: Qualifiers: Sepsis acute organ dysfunction status: without acute organ dysfunction Sepsis type: sepsis due to unspecified organism Qualified Code(s): A41.9 - Sepsis, unspecified organism Code(s): A41.9 - Sepsis, unspecified organism Status: Acute Assessment and Plan: Supported by tachycardia, tachypnea, leukocytosis, and elevated lactic acid in the setting infection. SOFA score is 3. Lactic acid level has normalized with IV fluid rehydration. wound culture positive for GB Streptococcus Chest x-ray positive for consolidation IV antibiotics Leukocytosis persist but stable (2) Diabetic foot ulcers: Code(s): E11.621 - Type 2 diabetes mellitus with foot ulcer; L97.509 - Non-pressure chronic ulcer of other part of unspecified foot with unspecified severity Status: Acute Assessment and Plan: Ulcer on the left plantar foot has an open area with scant purulent drainage. Ulcer over the right 2nd PIP joint with erythema and edema extending to the distal leg. Day 5 of vancomycin imipenem, appreciate surgical consultation Unlikely patient has osteomyelitis X-rays negative for osteomyelitis Status post debridement of left foot ulcer which are healing well (3) Cellulitis of leg: Code(s): L03.119 - Cellulitis of unspecified part of limb Status: Acute Assessment and Plan: Continue antibiotics (4) Atrial fibrillation with rapid ventricular response: Code(s): I48.91 - Unspecified atrial fibrillation Status: Acute Assessment and Plan: s/p Cardizem drip. Continue metoprolol Continue apixaban for stroke prophylaxis. Cardiology recommendation impression No plan for stress test as patient is moderate to high risk Metoprolol (5) Abnormal chest x-ray: Code(s): R93.89 - Abnormal findings on diagnostic imaging of other specified body structures Status: Acute Assessment and Plan: Bibasilar atelectasis/consolidation noted on chest x-ray. Atelectasis noted at the bases and CT of the abdomen and pelvis. Patient negative for influenza A and B as well as COVID-19. Associated with acute hypoxemic respiratory failure Secondary to aspiration pneumonia Dobbhoff placement Broad-spectrum IV antibiotic Failed swallow evaluation on 12/08/2021 Patient failed swallow evaluation (6) Dehydration: Code(s): E86.0 - Dehydration Status: Acute Assessment and Plan: He was given a 3 L bolus of fluids in the emergency department. Monitor volume status closely to avoid over-hydration. DC IV fluid (7) Ketosis: Code(s): E88.89 - Other specified metabolic disorders Status: Acute Assessment and Plan: Most likely related to dehydration (8) Insulin dependent type 2 diabetes mellitus: Code(s): E11.9 - Type 2 diabetes mellitus without complications; Z79.4 - [facility] (current) use of insulin Status: Acute Assessment and Plan: Continue basal insulin. On Lantus continue to hold scheduled NovoLog until patient start on tube feeding Continue insulin sliding scale Blood sugar elevated Adjust insulin dosing (9) Cough: Code(s): R05.9 - Cough, unspecified Status: Acute Assessment and Plan: multifactorial most likely related to pneumonia and probable acute on top of chronic diastolic CHF exacerbation Continue antibiotic Discontinue IV fluid (10) Hyponatremia: Code(s): E87.1 - Hypo-osmolality and hyponatremia Status: Acute Subjective Date/time seen: 12/10/21 16:05 Interval history: 86 years old male with past medical history of AFib peripheral vascular disease diabetes hypertension presented to the hospital with generalized weakness was found to have sepsis cellulitis of lower extremity and foot ulcer surgery was consulted patient was found to have cellulitis and probable pneumonia presented on admissi
[2021-12-10 17:44] LABS: Glucose Point of Care 383 mg/dl (65-105)
[2021-12-10] MEDS: INSULIN ASPART (*BKC) 100 UNITS/ML 10 UNITS SUB-Q ×2 (18:13→23:51)
[2021-12-10] MEDS: METOCLOPRAMIDE HCL INJ 10 MG/2 ML VIAL 5 MG IV PUSH ×2 (18:19→23:54)
[2021-12-10] MEDS: MELATONIN 3 MG TABLET FEED TUBE (21:34)
[2021-12-10] MEDS: INSULIN GLARGINE (*BKC) 100 UNITS/ML 15 UNITS SUB-Q (21:35)
[2021-12-10 23:49] LABS: Glucose Point of Care 301 mg/dl (65-105)
[2021-12-10 23:49] LABS: Glucose Point of Care 277 mg/dl (65-105)
[2021-12-11] VITALS (14 sets, daily range): BP systolic 106–162; BP diastolic 67–88; PULSE 76–129; RESP 16–32; TEMP 36.3–37.7; O2SAT 95–99
[2021-12-11] MEDS: AMPICILLIN SULB 3 GM/NS 100 ML 3 GM/100 ML VIAL IVPB ×4 (02:25→20:33)
[2021-12-11 05:07] LABS: Basophils Absolute Auto 0.1 K/mm3 (0.0-0.1); Basophils Percent Auto 0.4 % (0.2-1.2); Eosinophils Absolute Auto 0.2 K/mm3 (0-0.3); Eosinophils Percent Auto 0.8 % (0-4.4); Hematocrit 36.3 % (42.0-52.0); Hemoglobin 12.4 g/dL (14.0-18.0); Immature Granulocyte Absolute 0.33 K/mm3 (0.00-0.031); Immature Granulocyte Percent A 1.6 % (0-0.5); Lymphocytes Absolute Auto 1.24 K/mm3 (0.9-3.2); Lymphocytes Percent Auto 5.9 % (18.3-44.2); Mean Corpuscular HGB Conc 34.2 g/dl (32-36); Mean Corpuscular Hemoglobin 29.4 pg (26-34); Monocytes Absolute Auto 1.6 K/mm3 (0.1-0.6); Monocytes Percent Auto 7.6 % (2.6-8.5); Neutrophils Absolute Auto 17.5 K/mm3 (1.3-6.7); Neutrophils Percent Auto 83.7 % (45.5-73.1); Platelet Count Result 431 k/mm3 (150-375); Red Blood Count 4.22 M/mm3 (4.6-6.20); Red Cell Distribution Width 14.1 % (11.5-14.5)
[2021-12-11 05:26] LABS: Alanine Aminotransferase 35 U/L (6-50); Albumin Level 2.9 g/dL (3.5-5.1); Alkaline Phosphatase 144 U/L (38-126); Anion Gap 7 mmol/L (8-16); Aspartate Amino Transferase 40 U/L (17-59); Bilirubin,Total 0.7 mg/dL (0.2-1.3); Blood Urea Nitrogen 24 mg/dL (9-20); Calcium 7.9 mg/dL (8.4-10.2); Carbon Dioxide 27 mmol/L (22-30); Chloride 94 mmol/L (98-107); Estimated CRCL calculation 60 ml/min; Estimated Glomerular Filt Rate > 60; Glucose 190 mg/dL (65-110); Potassium 3.6 mmol/L (3.4-5.0); Sodium 128 mmol/L (137-145)
[2021-12-11] MEDS: INSULIN ASPART (*BKC) 100 UNITS/ML 10 UNITS SUB-Q ×4 (06:20→23:27)
[2021-12-11] MEDS: INSULIN ASPART (*BKC) 100 UNITS/ML SUB-Q ×4 (06:20→23:28)
[2021-12-11 06:27] LABS: Glucose Point of Care 231 mg/dl (65-105)
[2021-12-11 07:55] LABS: Glucose Point of Care 229 mg/dl (65-105)
--- NOTE | 2021-12-11 07:56 | PM.PNCARD ---
Progress Note: A&P Assessment and Plan (1) Preop cardiovascular exam: Code(s): Z01.810 - Encounter for preprocedural cardiovascular examination Status: Acute Assessment and Plan: Risk profile: age, PAD, DM, hypertension, atrial fibrillation, dyslipidemia. Functional status:<4 METs. Last echo on 09/05/19 EF 60-65%, diastolic dysfunction (E/e' 12), mild LAE, trace AI, mild-mod MR, mild TR, RVSP 41 mmHg. Given his recent sepsis, I would hold off on pursuing a stress test. Echo 12/08/21 shows EF 55-60%, mild diastolic dysfunction (E/e' 10), mod LAE, mild (LUIS DANIEL 1.7 cm2), mod MAC. Given the above risk profile and functional status he would be at at least moderate to high surgical risk. However, if surgery is necessary to avoid progressive sepsis/septic shock then may proceed with surgery. No further cardiac workup at this time. Will sign off, please call with questions. (2) Peripheral arterial disease: Code(s): I73.9 - Peripheral vascular disease, unspecified Status: Acute Assessment and Plan: Based on BERNARDA and TBI: right mild-mod PAD and left mild PAD. (3) Hypertension: Code(s): I10 - Essential (primary) hypertension Status: Acute Assessment and Plan: Stable. (4) Dyslipidemia: Code(s): E78.5 - Hyperlipidemia, unspecified Status: Acute Assessment and Plan: On Atorvastatin. (5) Paroxysmal atrial fibrillation: Code(s): I48.0 - Paroxysmal atrial fibrillation Status: Acute Assessment and Plan: [id number] 4. On Eliquis. Was rate controlled with Metoprolol Succinate 50 mg BID. On increased Metoprolol tartate 75 mg BID via DHT. (6) Insulin dependent type 2 diabetes mellitus: Code(s): E11.9 - Type 2 diabetes mellitus without complications; Z79.4 - [facility] (current) use of insulin Status: Acute Assessment and Plan: Managed by hospitalist. (7) Sepsis: Qualifiers: Sepsis acute organ dysfunction status: without acute organ dysfunction Sepsis type: sepsis due to unspecified organism Qualified Code(s): A41.9 - Sepsis, unspecified organism Code(s): A41.9 - Sepsis, unspecified organism Status: Acute Assessment and Plan: On antibiotics and wound care. Subjective Date/time seen: 12/11/21 07:56 Denies chest pain or sob. Exam Const: General: cooperative, healthy appearing and comfortable Resp: Auscultation: clear to auscultation bilaterally, no crackles, no rales, no rhonchi and no wheezes Cardio: Jugular venous distension: no JVD Rate: tachycardic Rhythm: abnormal rhythm Heart sounds: no murmurs Peripheral pulses: dorsalis pedis present GI: GI Palp: No abdominal tenderness and Yes Soft to palpation Neuro: General: oriented to person, oriented to place and oriented to time Extrem: Right lower extremity: no edema Left lower extremity: no edema Objective Data Vital Signs Vital Signs: Vital Signs - 24 hr 12/10/21 08:00 12/10/21 09:17 12/10/21 10:00 Temperature 99.1 F Pulse Rate 105 H 111 H 88 Respiratory Rate 18 Blood Pressure 135/73 Pulse Oximetry 98 12/10/21 12:00 12/10/21 16:00 12/10/21 20:00 Temperature 98.0 F 97.4 F L 98.4 F Pulse Rate 93 114 H 101 H Respiratory Rate 18 20 20 Blood Pressure 118/75 124/73 133/87 Pulse Oximetry 97 95 100 12/10/21 21:34 12/10/21 22:00 12/10/21 23:46 Temperature 98.3 F Pulse Rate 127 H 107 H 95 Respiratory Rate 20 Blood Pressure 134/78 Pulse Oximetry 97 12/11/21 00:00 12/11/21 02:00 12/11/21 04:00 Temperature 99.8 F H Pulse Rate 97 100 103 H Respiratory Rate 20 Blood Pressure 134/67 Pulse Oximetry 99 12/11/21 05:23 Temperature Pulse Rate Respiratory Rate Blood Pressure Pulse Oximetry 98 Intake/Output Intake/Output: Intake & Output 12/08/21 12/09/21 12/10/21 12/11/21 23:59 23:59 23:59 23:59 Intake Total 2950 2900 1831 1486 Output Total 200 200 100 Balance 2750 2700 17
[2021-12-11] MEDS: METOPROLOL TARTRATE 25 MG TABLET 75 MG FEED TUBE ×2 (09:24→20:32)
[2021-12-11] MEDS: FAMOTIDINE 20 MG TABLET FEED TUBE ×2 (09:24→20:32)
[2021-12-11] MEDS: APIXABAN 5 MG TABLET FEED TUBE ×2 (09:25→20:32)
[2021-12-11] MEDS: SILVERGEL (ELTA) 45 ML 1 APPLIC TOPICAL (09:25)
[2021-12-11] MEDS: ATORVASTATIN 20 MG TABLET PO (09:50)
--- NOTE | 2021-12-11 10:53 | PCPTNOTE ---
Patient declined treatment this session due to not feeling good this morning.
[2021-12-11 11:55] LABS: Glucose Point of Care 292 mg/dl (65-105)
--- NOTE | 2021-12-11 12:10 | PCNFU ---
Nutrition Follow-Up Complete: Swallowing Difficulties as related to Dysphagia as evidenced by Tube feedings. Goal:Meet estimated nutritional needs Pt is progressing towards goal. Continue with current goal at this time. Pt current nutrition is Tube Feeding of Glucerna 1.2 running @ 65mL/hr over 22 hours Last recorded weight is 102.3 kg - up 2kg from last reported wt. Bowel Motility: No new BM reported Labs Reviewed: Hgb 12.4, Hct 36.3, Alb 2.9, Na 128, Cl 94, BUN 24, Glu 190, ALP 144 Meds: Ampicillin Sodium/Sulbactam Sodium, Eliquis, Pepcid, Novolog, Lopressor, Vancomycin Skin: Left Plantar Diabetic Foot Ulcer, 2nd Right Toe Diabetic Ulcer, Right Heel Ulcer Additional Notes: Current nutrition is a TF diet of Glucerna 1.2 running at goal rate of 65mL/hr over 22 hours. This is providing 1716kcal, 86g of protein, and 1151mL of water. Pt receiving 30mL water flushes every q 4 hours. Current nutrition is meeting 96% of estimated kcal needs and 100% of estimated protein needs. Pt appears to be tolerating tube feeding formula and rate well. Agree with diet orders at this time. Will continue to follow. Will monitor every Tuesday and Tuesday.
[2021-12-11] MEDS: METOPROLOL TARTRATE INJ 5 MG/5 ML VIAL IV PUSH (13:53)
--- NOTE | 2021-12-11 14:11 | PCPTNOTE ---
Patient refused treatment stating he did not want to exercise, get out of bed, or walk. Patient voices understanding of the importance of participating in therapy to improve strength and mobility, however continues to decline PT treatment today.
[2021-12-11 16:13] LABS: Glucose Point of Care 261 mg/dl (65-105)
--- NOTE | 2021-12-11 17:09 | PM.IMPN ---
Progress Note: A&P Assessment and Plan (1) Sepsis: Qualifiers: Sepsis acute organ dysfunction status: without acute organ dysfunction Sepsis type: sepsis due to unspecified organism Qualified Code(s): A41.9 - Sepsis, unspecified organism Code(s): A41.9 - Sepsis, unspecified organism Status: Acute Assessment and Plan: Supported by tachycardia, tachypnea, leukocytosis, and elevated lactic acid in the setting infection. SOFA score is 3. Lactic acid level has normalized with IV fluid rehydration. wound culture positive for GB Streptococcus Chest x-ray bibasilar atelectasis/consolidation worse on the left likely small left pleural effusion IV antibiotics with vancomycin and Unasyn Leukocytosis remains persistent despite broad-spectrum antibiotics (2) Diabetic foot ulcers: Code(s): E11.621 - Type 2 diabetes mellitus with foot ulcer; L97.509 - Non-pressure chronic ulcer of other part of unspecified foot with unspecified severity Status: Acute Assessment and Plan: Ulcer on the left plantar foot has an open area with scant purulent drainage. Ulcer over the right 2nd PIP joint with erythema and edema extending to the distal leg. Day 6 of vancomycin Unasyn, appreciate surgical consultation Unlikely patient has osteomyelitis X-rays negative for osteomyelitis Status post debridement of left foot ulcer which are healing well Right foot ulcerations persist If does not improve with IV antibiotics no dictation like only surgical option however patient not decisional. We discussed with the family (3) Cellulitis of leg: Code(s): L03.119 - Cellulitis of unspecified part of limb Status: Acute Assessment and Plan: Continue antibiotics (4) Atrial fibrillation with rapid ventricular response: Code(s): I48.91 - Unspecified atrial fibrillation Status: Acute Assessment and Plan: s/p Cardizem drip. Continue metoprolol Continue apixaban for stroke prophylaxis. Cardiology recommendation impression No plan for stress test as patient is moderate to high risk Metoprolol (5) Abnormal chest x-ray: Code(s): R93.89 - Abnormal findings on diagnostic imaging of other specified body structures Status: Acute Assessment and Plan: Bibasilar atelectasis/consolidation noted on chest x-ray. Atelectasis noted at the bases and CT of the abdomen and pelvis. Patient negative for influenza A and B as well as COVID-19. Associated with acute hypoxemic respiratory failure Secondary to aspiration pneumonia Dobbhoff placement Broad-spectrum IV antibiotic Failed swallow evaluation on 12/08/2021 Patient failed swallow evaluation (6) Dehydration: Code(s): E86.0 - Dehydration Status: Acute Assessment and Plan: He was given a 3 L bolus of fluids in the emergency department. Monitor volume status closely to avoid over-hydration. DC IV fluid (7) Ketosis: Code(s): E88.89 - Other specified metabolic disorders Status: Acute Assessment and Plan: Most likely related to dehydration (8) Insulin dependent type 2 diabetes mellitus: Code(s): E11.9 - Type 2 diabetes mellitus without complications; Z79.4 - [facility] (current) use of insulin Status: Acute Assessment and Plan: Continue basal insulin. On Lantus continue to hold scheduled NovoLog until patient start on tube feeding Continue insulin sliding scale Blood sugar elevated Adjust insulin dosing (9) Cough: Code(s): R05.9 - Cough, unspecified Status: Acute Assessment and Plan: multifactorial most likely related to pneumonia and probable acute on top of chronic diastolic CHF exacerbation Continue antibiotic Discontinue IV fluid (10) Hyponatremia: Code(s): E87.1 - Hypo-osmolality and hyponatremia Status: Acute Assessment and Plan: Stable (11) Advanced care planning/counseling discussion: Code
--- NOTE | 2021-12-11 17:14 | PC.NURSE ---
This patient, Aron Rose, was transferred to [facility] on 12/11/21 at 1714. Personal belongings sent with patient. Report given to Ángela PUCKETT. Appropriate documentation sent with patient.
--- NOTE | 2021-12-11 17:51 | PM.PNGS ---
Progress Note: A&P Assessment and Plan (1) Diabetic infection of right foot: Code(s): E11.628 - Type 2 diabetes mellitus with other skin complications; L08.9 - Local infection of the skin and subcutaneous tissue, unspecified Status: Acute Assessment and Plan: Foot looks much worse today with evidence of progressive infection and ischemic change of the 3rd toe spreading on to the instep of the right foot. This may be a gas-forming infection coupled with some peripheral vascular insufficiency. I have tried to call and speak to the patient's , his daughter Lorene, and his son Ghulam. I was not able to make connections with any of them. I spoke with the hospitalist as well as the patient's nurse. They are still considering hospice. I recommend hospice. I am not sure the patient would tolerate surgery. While a wedge resection of the 2nd and 3rd toe along with some of the distal foot would be a 1st step amputation, this is unlikely to heal and most likely either a BKA or AKA would be needed. When I spoke with the family yesterday, they were not in favor of amputation. I agree with this decision and feel that hospice would be a much better option. (2) Peripheral arterial disease: Code(s): I73.9 - Peripheral vascular disease, unspecified Status: Acute Assessment and Plan: More microvascular disease rather than macrovascular consistent with diabetes and his Doppler studies. 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 He has significant neuropathy so this is not new. Review of Systems Review of Systems: ROS unobtainable: Yes unobtainable due to mental status (Cognitive impairment due to previous stroke) Exam Const: General: comfortable, alert and awake Nutritional Appearance: average body habitus Extrem: Right lower extremity: foot (3rd toe dusky, in step with hemorrhagic blisters, violaceous) Details: other (Ulcer on 2nd toe stable); no tenderness Objective Data Vital Signs Vital Signs: Vital Signs - 24 hr 12/10/21 20:00 12/10/21 21:34 12/10/21 22:00 Temperature 36.9 C Pulse Rate 101 H 127 H 107 H Respiratory Rate 20 Blood Pressure 133/87 Pulse Oximetry 100 12/10/21 23:46 12/11/21 00:00 12/11/21 02:00 Temperature 36.8 C Pulse Rate 95 97 100 Respiratory Rate 20 Blood Pressure 134/78 Pulse Oximetry 97 12/11/21 04:00 12/11/21 05:23 12/11/21 08:00 Temperature 37.7 C H 36.6 C Pulse Rate 103 H 107 H Respiratory Rate 20 16 Blood Pressure 134/67 123/71 Pulse Oximetry 99 98 95 12/11/21 09:24 12/11/21 11:45 12/11/21 12:00 Temperature 36.6 C Pulse Rate 110 H 100 114 H Respiratory Rate 20 Blood Pressure 145/77 H Pulse Oximetry 97 12/11/21 13:53 12/11/21 16:00 Temperature 36.3 C L Pulse Rate 129 H 105 H Respiratory Rate 32 H Blood Pressure 137/78 Pulse Oximetry 96 Intake/Output Intake/Output: Intake & Output 12/08/21 12/09/21 12/10/21 12/11/21 23:59 23:59 23:59 23:59 Intake Total 2950 2900 1831 1686 Output Total 200 200 100 Balance 2750 2700 1731 1686 Meds/Results Medications: Active Medications Generic Name Dose Route Start Last Admin Trade Name Freq PRN Reason Stop Dose Admin Apixaban 5 mg 12/09/21 21:00 12/11/21 09:25 Apixaban 5 Mg Tablet FEED TUBE 5 mg Q12HR INGE Administration Atorvastatin Calcium 20 mg 12/08/21 09:00 12/11/21 09:50 Atorvastatin 20 Mg Tablet PO 20 mg DAILY INGE Administration Dextrose 12.5 gm 12/05/21 19:02 Dextrose 50% 25 Gm/50 Ml Syringe IV PUSH PRN PRN Hypoglycemia Protocol Famotidine 20 mg 12/09/21 21:00 12/11/21 09:24 Famotidine 20 Mg Tablet
[2021-12-11 18:08] LABS: Glucose Point of Care 224 mg/dl (65-105)
[2021-12-11] MEDS: INSULIN GLARGINE (*BKC) 100 UNITS/ML 15 UNITS SUB-Q (20:32)
[2021-12-11] MEDS: MELATONIN 3 MG TABLET FEED TUBE (20:32)
[2021-12-11 23:28] LABS: Glucose Point of Care 258 mg/dl (65-105)
[2021-12-12] VITALS (8 sets, daily range): BP systolic 144–150; BP diastolic 83–88; PULSE 94–108; RESP 16–21; TEMP 36.6–36.8; O2SAT 96–98
[2021-12-12] MEDS: AMPICILLIN SULB 3 GM/NS 100 ML 3 GM/100 ML VIAL IVPB ×2 (02:55→09:18)
[2021-12-12 06:05] LABS: Glucose Point of Care 229 mg/dl (65-105)
[2021-12-12] MEDS: INSULIN ASPART (*BKC) 100 UNITS/ML SUB-Q (06:15)
[2021-12-12] MEDS: INSULIN ASPART (*BKC) 100 UNITS/ML 10 UNITS SUB-Q (06:16)
[2021-12-12 08:27] LABS: Basophils Absolute Auto 0.1 K/mm3 (0.0-0.1); Basophils Percent Auto 0.6 % (0.2-1.2); Eosinophils Absolute Auto 0.3 K/mm3 (0-0.3); Eosinophils Percent Auto 1.5 % (0-4.4); Hematocrit 38.4 % (42.0-52.0); Hemoglobin 12.6 g/dL (14.0-18.0); Immature Granulocyte Absolute 0.35 K/mm3 (0.00-0.031); Immature Granulocyte Percent A 1.8 % (0-0.5); Lymphocytes Absolute Auto 1.08 K/mm3 (0.9-3.2); Lymphocytes Percent Auto 5.6 % (18.3-44.2); Mean Corpuscular HGB Conc 32.8 g/dl (32-36); Mean Corpuscular Hemoglobin 29.4 pg (26-34); Mean Corpuscular Volume 89.7 fl (80-100); Mean Platelet Volume 10.1 fl (7.4-10.4); Monocytes Absolute Auto 1.2 K/mm3 (0.1-0.6); Monocytes Percent Auto 6.1 % (2.6-8.5); Neutrophils Absolute Auto 16.1 K/mm3 (1.3-6.7); Neutrophils Percent Auto 84.4 % (45.5-73.1); Platelet Count Result 436 k/mm3 (150-375); Red Blood Count 4.28 M/mm3 (4.6-6.20); Red Cell Distribution Width 14.5 % (11.5-14.5); White Blood Count 19.1 K/mm3 (4.5-10.0)
[2021-12-12 08:36] LABS: Alanine Aminotransferase 32 U/L (6-50); Albumin Level 2.9 g/dL (3.5-5.1); Alkaline Phosphatase 142 U/L (38-126); Anion Gap 6 mmol/L (8-16); Aspartate Amino Transferase 35 U/L (17-59); Bilirubin,Total 0.6 mg/dL (0.2-1.3); Blood Urea Nitrogen 24 mg/dL (9-20); Carbon Dioxide 27 mmol/L (22-30); Chloride 97 mmol/L (98-107); Estimated CRCL calculation 60 ml/min; Estimated Glomerular Filt Rate > 60; Glucose 241 mg/dL (65-110); Magnesium 2.1 mg/dL (1.6-2.3); Potassium 3.9 mmol/L (3.4-5.0); Sodium 130 mmol/L (137-145)
[2021-12-12 08:42] LABS: Vancomycin Trough 28.3 ug/mL (10.0-20.0)
[2021-12-12] MEDS: FAMOTIDINE 20 MG TABLET FEED TUBE (09:18)
[2021-12-12] MEDS: METOPROLOL TARTRATE 25 MG TABLET 75 MG FEED TUBE (09:18)
[2021-12-12] MEDS: ATORVASTATIN 20 MG TABLET PO (09:18)
[2021-12-12] MEDS: SILVERGEL (ELTA) 45 ML 1 APPLIC TOPICAL (09:19)
[2021-12-12] MEDS: APIXABAN 5 MG TABLET FEED TUBE (09:19)
--- NOTE | 2021-12-12 10:24 | PCOTNOTE ---
Treatment withheld this date due to pending Hospice consult per nursing
--- NOTE | 2021-12-12 10:46 | PM.PNGS ---
Progress Note: A&P Assessment and Plan (1) Diabetic infection of right foot: Code(s): E11.628 - Type 2 diabetes mellitus with other skin complications; L08.9 - Local infection of the skin and subcutaneous tissue, unspecified Status: Acute Assessment and Plan: per nursing pt family to meet today c hospice, they are not wanting any surgical intervention at this point, cont local wound care Subjective Subjective Date/Time Seen: 12/12/21 10:46 pt seen and examined, no acute issues overnight per nursing Review of Systems Review of Systems: ROS unobtainable: Yes unobtainable due to medical condition and unobtainable due to mental status Exam Const: General: ill appearing Nutritional Appearance: obese Orientation/consciousness: patient obtunded and lethargic Limitations: altered mental status Resp: Auscultation: diminished lung sounds Cardio: Rate: regular rate Rhythm: regular rhythm GI: Inspection: normal to inspection GI Palp: Yes Soft to palpation and No Tenderness to palpation present (GI) Extrem: Other: R foot - unchanged, necrotic changes and infection are similar to yesterday Objective Data Vital Signs Vital Signs: Vital Signs - 24 hr 12/11/21 11:45 12/11/21 12:00 12/11/21 13:53 Temperature 36.6 C Pulse Rate 100 114 H 129 H Respiratory Rate 20 Blood Pressure 145/77 H Pulse Oximetry 97 12/11/21 16:00 12/11/21 18:05 12/11/21 20:00 Temperature 36.3 C L 36.8 C Pulse Rate 105 H 105 H 117 H Respiratory Rate 32 H 18 Blood Pressure 137/78 162/88 H Pulse Oximetry 96 95 12/11/21 20:32 12/11/21 22:00 12/12/21 00:00 Temperature 36.8 C Pulse Rate 113 H 76 96 Respiratory Rate 22 H Blood Pressure 106/71 Pulse Oximetry 97 12/12/21 04:00 12/12/21 06:00 12/12/21 09:18 Temperature 36.8 C Pulse Rate 94 106 H 106 H Respiratory Rate 21 H Blood Pressure 147/88 H Pulse Oximetry 96 Intake/Output Intake/Output: Intake & Output 12/09/21 12/10/21 12/11/21 12/12/21 23:59 23:59 23:59 23:59 Intake Total 2900 1831 2786 100 Output Total 200 100 Balance 2700 1731 2786 100 Meds/Results Medications: Active Medications Generic Name Dose Route Start Last Admin Trade Name Freq PRN Reason Stop Dose Admin Apixaban 5 mg 12/09/21 21:00 12/12/21 09:19 Apixaban 5 Mg Tablet FEED TUBE 5 mg Q12HR INGE Administration Atorvastatin Calcium 20 mg 12/08/21 09:00 12/12/21 09:18 Atorvastatin 20 Mg Tablet PO 20 mg DAILY INGE Administration Dextrose 12.5 gm 12/05/21 19:02 Dextrose 50% 25 Gm/50 Ml Syringe IV PUSH PRN PRN Hypoglycemia Protocol Famotidine 20 mg 12/09/21 21:00 12/12/21 09:18 Famotidine 20 Mg Tablet FEED TUBE 20 mg Q12HR INGE Administration Finasteride 5 mg 12/10/21 09:00 Finasteride 5 Mg Tablet FEED TUBE QAM INGE Glucagon 1 mg 12/05/21 19:02 Glucagon For Inj 1 Mg Vial IM PRN PRN Hypoglycemia Protocol Glucose 15 gm 12/05/21 19:02 Glucose Oral Gel 15 Gm Of Glucse In 37.5 Gm Tube PO PRN PRN Hypoglycemia Protocol Ampicillin Sodium/Sulbactam Sodium 3 gm in 100 mls @ 200 mls/hr 12/08/21 14:00 12/12/21 09:18 Unasyn 3 Gm/Ns 100 Ml IVPB 200 mls/hr Q6H INGE Administration Vancomycin HCl 1,750 mg in 500 mls @ 250 mls/hr 12/12/21 21:00 Vancomycin 1,750 Mg/D5w 500 Ml IVPB Q24H [facility] Insulin Aspart 4 - 8 units 12/08/21 12:15 12/12/21 06:15 Insulin Aspart (*Bkc) 100 Units/Ml SUB-Q 4 units Q6HR INGE Administration Protocol Insulin Aspart 10 units 12/10/21 18:00 12/12/21 06:16 Insulin Aspart (*Bkc) 100 Units/Ml 0.1 units/kg (10 units) 10 units SUB-Q Administration Q6HR [facility] Insulin Glargine 15 units 12/10/21 21:00 12/11/21 20:32 Insulin Glargine (*Bkc) 100 Units/Ml SUB-Q 15 units HS [facility] Administration Melatonin 3 mg 12/10/21 21:00 12/11/21 20:32 Melatonin 3 Mg Tablet FEED TUBE 3 mg [facility] A
--- NOTE | 2021-12-12 11:01 | PCPTNOTE ---
Did not see patient at this time due to hospice consult per nursing.
--- NOTE | 2021-12-12 11:04 | PCSTNOTE ---
Did not see patient due to hospice consult per nursing staff. Will check status regarding decision tomorrow prior to discharging from ST treatment.
[2021-12-12 11:47] LABS: Glucose Point of Care 200 mg/dl (65-105)
--- NOTE | 2021-12-12 13:30 | PM.IMPN ---
Progress Note: A&P Assessment and Plan (1) Sepsis: Qualifiers: Sepsis acute organ dysfunction status: without acute organ dysfunction Sepsis type: sepsis due to unspecified organism Qualified Code(s): A41.9 - Sepsis, unspecified organism Code(s): A41.9 - Sepsis, unspecified organism Status: Acute Assessment and Plan: Supported by tachycardia, tachypnea, leukocytosis, and elevated lactic acid in the setting infection. SOFA score is 3. Lactic acid level has normalized with IV fluid rehydration. wound culture positive for GB Streptococcus Chest x-ray bibasilar atelectasis/consolidation worse on the left likely small left pleural effusion IV antibiotics with vancomycin and Unasyn Leukocytosis remains persistent despite broad-spectrum antibiotics Likely source right foot infection/cellulitis with some gangrenous changes (2) Diabetic foot ulcers: Code(s): E11.621 - Type 2 diabetes mellitus with foot ulcer; L97.509 - Non-pressure chronic ulcer of other part of unspecified foot with unspecified severity Status: Acute Assessment and Plan: Ulcer on the left plantar foot has an open area with scant purulent drainage. Ulcer over the right 2nd PIP joint with erythema and edema extending to the distal leg. Day 6 of vancomycin Unasyn, appreciate surgical consultation Unlikely patient has osteomyelitis X-rays negative for osteomyelitis Status post debridement of left foot ulcer which are healing well Right foot ulcerations persist If does not improve with IV antibiotics no dictation like only surgical option however patient not decisional. We discussed with the family Family had opted for hospice and comfort measures Hospice at home being arranged (3) Cellulitis of leg: Code(s): L03.119 - Cellulitis of unspecified part of limb Status: Acute Assessment and Plan: Continue antibiotics (4) Atrial fibrillation with rapid ventricular response: Code(s): I48.91 - Unspecified atrial fibrillation Status: Acute Assessment and Plan: s/p Cardizem drip. Continue metoprolol Continue apixaban for stroke prophylaxis. Cardiology recommendation impression No plan for stress test as patient is moderate to high risk Metoprolol (5) Abnormal chest x-ray: Code(s): R93.89 - Abnormal findings on diagnostic imaging of other specified body structures Status: Acute Assessment and Plan: Bibasilar atelectasis/consolidation noted on chest x-ray. Atelectasis noted at the bases and CT of the abdomen and pelvis. Patient negative for influenza A and B as well as COVID-19. Associated with acute hypoxemic respiratory failure Secondary to aspiration pneumonia Dobbhoff placement Broad-spectrum IV antibiotic Failed swallow evaluation on 12/08/2021 Patient failed swallow evaluation Does not want PEG tube placement or continued Dobbhoff and tube feeding (6) Dehydration: Code(s): E86.0 - Dehydration Status: Acute Assessment and Plan: He was given a 3 L bolus of fluids in the emergency department. Monitor volume status closely to avoid over-hydration. DC IV fluid (7) Ketosis: Code(s): E88.89 - Other specified metabolic disorders Status: Acute Assessment and Plan: Most likely related to dehydration (8) Insulin dependent type 2 diabetes mellitus: Code(s): E11.9 - Type 2 diabetes mellitus without complications; Z79.4 - intermediate designer (current) use of insulin Status: Acute Assessment and Plan: Continue basal insulin. On Lantus continue to hold scheduled NovoLog until patient start on tube feeding Continue insulin sliding scale Blood sugar elevated Adjust insulin dosing (9) Cough: Code(s): R05.9 - Cough, unspecified Status: Acute Assessment and Plan: multifactorial most likely related to pneumonia and probable acute on top of chronic diastolic CHF exacerbation Continue anti
--- NOTE | 2021-12-13 08:08 | PM.PNGS ---
Progress Note: A&P Assessment and Plan (1) Sepsis: Qualifiers: Sepsis acute organ dysfunction status: without acute organ dysfunction Sepsis type: sepsis due to unspecified organism Qualified Code(s): A41.9 - Sepsis, unspecified organism Code(s): A41.9 - Sepsis, unspecified organism Status: Acute Assessment and Plan: pt being setup for home hospice care, will sign off, call c ?s, issues (2) Diabetic infection of right foot: Code(s): E11.628 - Type 2 diabetes mellitus with other skin complications; L08.9 - Local infection of the skin and subcutaneous tissue, unspecified Status: Acute Assessment and Plan: see above Subjective Subjective Date/Time Seen: 12/13/21 08:08 pt seen and examined, no acute issues overnight, decision to proceed c home hospice care at this time Review of Systems Review of Systems: ROS unobtainable: Yes unobtainable due to medical condition Exam Const: General: ill appearing and lethargic Resp: Auscultation: diminished lung sounds Cardio: Rate: regular rate Rhythm: regular rhythm GI: Inspection: normal to inspection GI Palp: Yes Soft to palpation Skin: Other: R foot dressing C/D/I Objective Data Vital Signs Vital Signs: Vital Signs - 24 hr 12/12/21 09:18 12/12/21 12:00 12/12/21 13:34 Temperature 36.6 C Pulse Rate 106 H 107 H 102 H Respiratory Rate 16 Blood Pressure 144/86 H Pulse Oximetry 98 12/12/21 19:55 12/12/21 20:50 Temperature 36.6 C Pulse Rate 108 H 108 H Respiratory Rate 16 Blood Pressure 150/83 H Pulse Oximetry 96 Intake/Output Intake/Output: Intake & Output 12/10/21 12/11/21 12/12/21 12/13/21 23:59 23:59 23:59 23:59 Intake Total 1831 2786 100 Output Total 100 Balance 1731 2786 100 Meds/Results Medications: Active Medications Generic Name Dose Route Start Last Admin Trade Name Freq PRN Reason Stop Dose Admin Acetaminophen 650 mg 12/12/21 13:34 Acetaminophen 325 Mg Tablet PO Q4H PRN Mild Pain (1-3) or Fever Atorvastatin Calcium 20 mg 12/08/21 09:00 12/13/21 07:44 Atorvastatin 20 Mg Tablet PO Not Given DAILY INGE Dextrose 12.5 gm 12/05/21 19:02 Dextrose 50% 25 Gm/50 Ml Syringe IV PUSH PRN PRN Hypoglycemia Protocol Famotidine 20 mg 12/09/21 21:00 12/13/21 07:44 Famotidine 20 Mg Tablet FEED TUBE Not Given Q12HR INGE Finasteride 5 mg 12/10/21 09:00 Finasteride 5 Mg Tablet FEED TUBE QAM INGE Glucagon 1 mg 12/05/21 19:02 Glucagon For Inj 1 Mg Vial IM PRN PRN Hypoglycemia Protocol Glucose 15 gm 12/05/21 19:02 Glucose Oral Gel 15 Gm Of Glucse In 37.5 Gm Tube PO PRN PRN Hypoglycemia Protocol Melatonin 3 mg 12/10/21 21:00 12/12/21 20:50 Melatonin 3 Mg Tablet FEED TUBE Not Given HS INGE Metoclopramide HCl 5 mg 12/10/21 16:21 12/10/21 23:54 Metoclopramide Hcl Inj 10 Mg/2 Ml Vial IV PUSH 5 mg Q6HR PRN Administration hiccoughs Metoprolol Tartrate 5 mg 12/08/21 15:26 12/11/21 13:53 Metoprolol Tartrate Inj 5 Mg/5 Ml Vial IV PUSH 5 mg Q6H PRN Administration Tachycardia Metoprolol Tartrate 75 mg 12/09/21 21:00 12/13/21 07:44 Metoprolol Tartrate 25 Mg Tablet FEED TUBE Not Given Q12HR INGE Morphine Sulfate 2 mg 12/12/21 13:34 Morphine Sulfate (*Crx) 2 Mg/Ml Inj IV PUSH Q2H PRN Pain Rated 7-10 Silver Nitrate 1 applic 12/07/21 09:00 12/12/21 09:19 Silvergel (Elta) 45 Ml TOPICAL 1 applic DAILY [facility] Administration Tamsulosin HCl 0.4 mg 12/08/21 09:00 12/08/21 08:28 Tamsulosin Hcl 0.4 Mg Capsule PO 0.4 mg DAILY INGE Administration Radiology Results: ITS Impressions Chest X-Ray 12/05/21 14:24 IMPRESSION: Bibasilar atelectasis/consolidation, worse on the left. Likely small left pleural effusion. Head CT 12/05/21 14:27 IMPRESSION: Old right occipital and left basal ganglia an
[2021-12-13] MEDS: SILVERGEL (ELTA) 45 ML 1 APPLIC TOPICAL (08:37)
--- NOTE | 2021-12-13 11:51 | PCSTNOTE ---
Requested discharge from ST services for hospice.
--- NOTE | 2021-12-13 13:13 | P.PNIM_ITS ---
Progress Note: A&P Assessment and Plan (1) Sepsis: Qualifiers: Sepsis acute organ dysfunction status: without acute organ dysfunction Sepsis type: sepsis due to unspecified organism Qualified Code(s): A41.9 - S epsis, unspecified organism Code(s): A41.9 - Sepsis, unspecified organism Status: Acute Assessment and Plan: Supported by tachycardia, tachypnea, leukocytosis, and elevated lactic acid in the setting infection. SOFA score is 3. Lactic acid level has normalized with IV fluid rehydration. wound culture positive for GB Streptococcus Chest x-ray bibasilar atelectasis/consolidation worse on the left likely small left pleural effusion IV antibiotics with vancomycin and Unasyn Leukocytosis remains persistent despite broad-spectrum antibiotics Likely source right foot infection/cellulitis with some gangrenous changes (2) Diabetic foot ulcers: Code(s): E11.621 - Type 2 diabetes mellitus with foot ulcer; L97.509 - Non-pressure chronic ulcer of other part of unspecified foot with unspecified severity Status: Acute Assessment and Plan: Ulcer on the left plantar foot has an open area with scant purulent drainage. Ulcer over the right 2nd PIP joint with erythema and edema extending to the distal leg. Day 6 of vancomycin Unasyn, appreciate surgical consultation Unlikely patient has osteomyelitis X-rays negative for osteomyelitis Status post debridement of left foot ulcer which are healing well Right foot ulcerations persist If does not improve with IV antibiotics no dictation like only surgical option however patient not decisional. We discussed with the family Family had opted for hospice and comfort measures Hospice at home being arranged (3) Cellulitis of leg: Code(s): L03.119 - Cellulitis of unspecified part of limb Status: Acute Assessment and Plan: Continue antibiotics (4) Atrial fibrillation with rapid ventricular response: Code(s): I48.91 - Unspecified atrial fibrillation Status: Acute Assessment and Plan: s/p Cardizem drip. Continue metoprolol Continue apixaban for stroke prophylaxis. Cardiology recommendation impression No plan for stress test as patient is moderate to high risk Metoprolol (5) Abnormal chest x-ray: Code(s): R93.89 - Abnormal findings on diagnostic imaging of other specified body structures Status: Acute Assessment and Plan: Bibasilar atelectasis/consolidation noted on chest x-ray. Atelectasis noted at the bases and CT of the abdomen and pelvis. Patient negative for influenza A and B as well as COVID-19. Associated with acute hypoxemic respiratory failure Secondary to aspiration pneumonia Dobbhoff placement Broad-spectrum IV antibiotic Failed swallow evaluation on 12/08/2021 Patient failed swallow evaluation Does not want PEG tube placement or continued Dobbhoff and tube feeding (6) Dehydration: Code(s): E86.0 - Dehydration Status: Acute Assessment and Plan: He was given a 3 L bolus of fluids in the emergency department. Monitor volume status closely to avoid over-hydration. DC IV fluid (7) Ketosis: Code(s): E88.89 - Other specified metabolic disorders Status: Acute Assessment and Plan: Most likely related to dehydration (8) Insulin dependent type 2 diabetes mellitus: Code(s): E11.9 - Type 2 diabetes mellitus without complications; Z79.4 - [facility] (current) use of insulin Status: Acute Assessment and Plan: Cont
[2021-12-13 14:29] VITALS: BP 134/77; PULSE 89; RESP 16; TEMP 36.7; O2SAT 95
[2021-12-13 20:00] VITALS: BP 135/64; PULSE 109; RESP 16; TEMP 36.5; O2SAT 99
--- NOTE | 2021-12-14 09:59 | PM.DS ---
DS: Admitting Diagnosis Discharge Date 12/14/2021 Admitting Diagnosis sepsis DS: Discharge Diagnosis Discharge Diagnosis (1) Sepsis: Qualifiers: Sepsis acute organ dysfunction status: without acute organ dysfunction Sepsis type: sepsis due to unspecified organism Qualified Code(s): A41.9 - Sepsis, unspecified organism Code(s): A41.9 - Sepsis, unspecified organism Status: Acute Assessment and Plan: Supported by tachycardia, tachypnea, leukocytosis, and elevated lactic acid in the setting infection. SOFA score on admission is 3. Lactic acid level elevated on admission which has normalized with IV fluid rehydration. he had bilateral foot ulcers with cellulitis. There were possible granulomas changes. wound culture positive for GB Streptococcus Chest x-ray Also showedbibasilar atelectasis/consolidation worse on the left likely small left pleural effusion he was started on IV antibiotics with vancomycin and Unasyn Leukocytosis remains persistent despite broad-spectrum antibiotics Likely source right foot infection/cellulitis with some gangrenous changes suggested possible likelihood of needing amputation which the patient and the family refused. General surgery was consulted (2) Diabetic foot ulcers: Code(s): E11.621 - Type 2 diabetes mellitus with foot ulcer; L97.509 - Non-pressure chronic ulcer of other part of unspecified foot with unspecified severity Status: Acute Assessment and Plan: Ulcer on the left plantar foot has an open area with scant purulent drainage. Ulcer over the right 2nd PIP joint with erythema and edema extending to the distal leg. treated with vancomycin Unasyn, appreciate surgical consultation X-rays negative for osteomyelitis Status post debridement of left foot ulcer At bedside which are healing well Right foot ulcerations persist no improvement in leukocytosis with IV antibiotics Peripheral arterial disease noted in bilateral lower extremities Further discussion with the patient and the family with continue medical care versus hospice and family opted for hospice and comfort measures This was arranged during the hospital stay for discharge to home with home hospice. (3) Cellulitis of leg: Code(s): L03.119 - Cellulitis of unspecified part of limb Status: Acute Assessment and Plan: See above (4) Atrial fibrillation with rapid ventricular response: Code(s): I48.91 - Unspecified atrial fibrillation Status: Acute Assessment and Plan: on admission s/p Cardizem drip. Continue metoprolol Continue apixaban for stroke prophylaxis. cardiology was consulted Deemed moderate to high risk for any surgical procedure (5) Abnormal chest x-ray: Code(s): R93.89 - Abnormal findings on diagnostic imaging of other specified body structures Status: Acute Assessment and Plan: Bibasilar atelectasis/consolidation noted on chest x-ray. Atelectasis noted at the bases and CT of the abdomen and pelvis. Patient negative for influenza A and B as well as COVID-19. Associated with acute hypoxemic respiratory failure Secondary to aspiration pneumonia swallow evaluation with MBS done which showed possible aspiration. tube feeding with Dobbhoff placement done however since opted for hospice this was removed and patient allowed to eat for comfort (6) Dehydration: Code(s): E86.0 - Dehydration Status: Acute Assessment and Plan: He was given a 3 L bolus of fluids in the emergency department. Monitor volume status closely to avoid over-hydration. DC IV fluid (7) Ketosis: Code(s): E88.89 - Other specified metabolic disorders Status: Acute Assessment and Plan: Most likely related to dehydration This is resolved (8) Insulin dependent type 2 diabetes mellitus: Code(s): E11.9 - Type 2 diabetes mellitus without complications; Z79.4 - [facility]P (current) use of insulin
--- NOTE | 2021-12-14 11:14 | PCNFU ---
Nutrition Follow-Up Complete: Swallowing Difficulties as related to Dysphagia as evidenced by Tube feedings. Meet estimated nutritional needs Patient has limited progress towards goal. We will continue current goal. Pt current nutrition is Regular. Last recorded weight is 94.9 kg, down from 100.3 kg on admit. Bowel Motility: +BM reported 12/13 Labs Reviewed:No new labs to report Additional Notes: Patient had MBS on 12/08-failed. Patient has advanced to a regular diet order. Plans for hospice care. No further nutritional interventions needed.
[2021-12-14 11:35] VITALS: BP 151/79; PULSE 70; RESP 18; TEMP 36.8; O2SAT 99
== END 2021-12-14 14:00 | disposition hospice, home (50) | DRG 853 ==
LOC: ANHED 16:09 → ANHIMU 17:09 → ANH3MED 12-11 17:36
PROVIDERS: Internal Medicine; Nurse Practitioner Family; Physician Assistant; Admitting Provider Student in an Organized Health Care Education/Training Program; Emergency Provider Emergency Medicine; PCP Family Medicine; Visit Provider Internal Medicine
DX: A41.9 Sepsis, unspecified organism (principal); J96.01 Acute respiratory failure with hypoxia; J69.0 Pneumonitis due to inhalation of food and vomit; I50.33 Acute on chronic diastolic (congestive) heart failure; E87.1 Hypo-osmolality and hyponatremia; L03.116 Cellulitis of left lower limb; E11.628 Type 2 diabetes mellitus with other skin complications; B95.1 Streptococcus, group B, as the cause of diseases classified elsewhere; E11.621 Type 2 diabetes mellitus with foot ulcer; L97.529 Non-pressure chronic ulcer of other part of left foot with unspecified severity; Z20.822 Contact with and (suspected) exposure to COVID-19; I48.0 Paroxysmal atrial fibrillation; N32.81 Overactive bladder; E86.0 Dehydration; E88.89 Other specified metabolic disorders; R13.10 Dysphagia, unspecified; N40.1 Benign prostatic hyperplasia with lower urinary tract symptoms; R35.1 Nocturia; E11.42 Type 2 diabetes mellitus with diabetic polyneuropathy; E11.65 Type 2 diabetes mellitus with hyperglycemia; I69.319 Unspecified symptoms and signs involving cognitive functions following cerebral infarction; I69.311 Memory deficit following cerebral infarction; Z79.4 Long term (current) use of insulin; Z79.01 Long term (current) use of anticoagulants; Z87.442 Personal history of urinary calculi; Z96.641 Presence of right artificial hip joint
CPT/HCPCS: 36415; 36600; 43752; 51701; 70450; 71046; 73620; 74176; 80048; 80053; 80176; 80202; 81001; 82010; 82375; 82565; 82805; 82948; 83036; 83050; 83605; 83735; 84295; 85025; 85610; 85652; 85730; 86140; 87040; 87070; 87077; 87086; 87205; 87502; 92526; 92611; 93005; 93306; 93922; 96361; 96374; 96375; 97110; 97161; 97165; 97530; 99285; A9270; C9803; J0295; J0696; J0743; J1815; J1940; J2765; J3370; J7030; J7120; Q9957; U0003; U0005